=== PATIENT | male | born 1960 | race Caucasian/White ===

== ENCOUNTER → 2018-03-20 | Outpatient (CLI) | payer OTHER ==
[~2018-03-20] MED LIST: ALBUTEROL SULF8.5 GM; ALBUTEROL SULFAT2 MG PO; FLONASE16 GM NS; LASIX40 MG PO; LEVAQUIN500 MG PO; LIPITOR20 MG NG; LSNP2.5 PO; PHN100C PO; PREDNISONE10 MG PO; SYMBICORT 16010.2 GM; THP300TCR PO; VIAGRA100 MG PO; [UNRECOGNIZED DRUG - CODE] PO; [UNRECOGNIZED DRUG - OTHER]
--- NOTE | 2018-03-20 10:49 | Diagnostic Imaging Report ---
PROCEDURE: CT CHEST WITHOUT CONTRAST CT scan of the chest WITHOUT intravenous contrast, using standard protocol. TECHNIQUE: The chest was scanned utilizing a multidetector helical scanner from the apex to the level of the adrenal glands. No IV contrast was administered because of referring physician request. Coronal and sagittal multiplanar reformations were obtained. COMPARISON: The 10/19/2017. INDICATIONS: NODULE FINDINGS: Lines/tubes: None. Lungs and Airways: 5 mm irregularly marginated nodule in the superior segment of the left upper lobe has minimally increased in size, now measuring 6 mm in diameter. Scattered patchy and linear foci of groundglass opacity in the lingula (series 3 image 56), right upper lobe, (series 3 image 35), and inferior lingula,( series 3 image 89) likely reflective of atelectasis or fibrotic changes.. Trachea, mainstem bronchi, and central lobar and segmental bronchi are patent. Pleura: The pleural spaces are clear. Heart and mediastinum: Hypoattenuating lesion in the left lobe of the thyroid gland is unchanged. No axillary, hilar or, or mediastinal lymphadenopathy. No pericardial effusion. No ectasia or aneurysmal dilatation of the thoracic aorta. Atherosclerotic calcification of the right main and left anterior descending coronary arteries. Soft tissues: Normal. Abdomen: Visualized portions of the liver, spleen, adrenals, and pancreas are unremarkable. Bones: No osseous destructive lesions. Multilevel degenerative disc changes of the lower cervical and thoracic spine. IMPRESSION: Questionable minimal interval increase in size of the irregularly marginated nodule in the superior segment of the left lower lobe, now measuring 6 mm in maximum diameter. An additional [address] scan of the chest is suggested, as the nodule remains of insufficient size for reliable percutaneous sampling or evaluation by PET-CT. 1.4 cm lesion in left lobe of the thyroid may be further evaluated by ultrasound if clinically warranted. Atherosclerotic vascular disease. Dictated by: Akin Fofana M.D. on 03/20/2018 at 10:51 Electronically approved by: Akin Fofana M.D. on 03/20/2018 at 10:51
== END ==
LOC: CT 09:24
PROVIDERS: ATTEND Internal Medicine Critical Care Medicine
DX: R91.8 Other nonspecific abnormal finding of lung field (principal); I70.90 Unspecified atherosclerosis
CPT/HCPCS: 71250

== ENCOUNTER → 2018-05-30 | Outpatient (CLI) | payer OTHER ==
--- NOTE | 2018-05-30 15:26 | Diagnostic Imaging Report ---
PROCEDURE: CT CHEST WITHOUT CONTRAST CT scan of the chest WITHOUT intravenous contrast, using standard nodule protocol. TECHNIQUE: The chest was scanned utilizing a multidetector helical scanner from the apex to the level of the adrenal glands. No IV contrast was administered . Coronal and sagittal multiplanar reformations were obtained. COMPARISON: None. INDICATIONS: NODULE FINDINGS: Lines/tubes: None. Lungs and Airways: Stable size and appearance of mildly spiculated noncalcified nodule in the superior segment of the left lower lobe, which measures approximately 0.6 x 0.6 cm (series 3, image 47). Marked interval improvement in previously visualized patchy groundglass opacities in the lingula (series 3, image 64). Interval resolution of right upper lobe groundglass opacities. No new nodules, masses, or consolidation. Airways are clear, without endobronchial lesions. Pleura: No effusion, or pneumothorax. Heart and mediastinum: Stable hypodense lesion in the left thyroid lobe, measuring approximately 1.4 cm (series 2 image 16). Heart size is normal. No pericardial effusion. Mild atherosclerotic calcification of the coronary arteries and thoracic aortic arch. Aorta is non-aneurysmal. Main pulmonary artery is normal in caliber. Lymph nodes: No mediastinal, hilar, or axillary adenopathy. Abdomen: Limited non-enhanced views of the upper abdomen show no abnormality within the visualized spleen, pancreas. Diffuse hepatic steatosis. Visualized portions of the adrenal glands are normal. Bones: No acute bony abnormalities. No aggressive lytic lesions. Soft tissues are grossly unremarkable. IMPRESSION: 1. Stable size and appearance of mildly spiculated nodule in the superior segment of the left lower lobe. Recommend followup chest CT in 3-6 months to document stability. Nodule remains likely of insufficient size for tissue biopsy or PET CT evaluation. Yusef Lopez M.D. Dictated by: Yusef Lopez M.D. on 05/30/2018 at 15:31 Electronically approved by: Yusef Lopez M.D. on 05/30/2018 at 15:31
== END ==
LOC: CT 14:09
PROVIDERS: ATTEND Internal Medicine Critical Care Medicine
DX: R91.8 Other nonspecific abnormal finding of lung field (principal)
CPT/HCPCS: 71250

== ENCOUNTER 2018-12-31 12:59 | Inpatient (IN) | payer OTHER ==
[~2018-12-31] VITALS: Ht 182.9 cm; Wt 108.5 kg
--- OUTSIDE RECORDS SUMMARY | 2018-12-31 13:02 | XMS REPORT ---
[facility] Address Unknown Phone Unavailable Care Team Providers Care Parts Counter Associate Name Role Phone EVERT GUERRERO Unavailable Unavailable DRE, VU Unavailable Unavailable Problems This patient has no known problems. Allergies, Adverse Reactions, Alerts This patient has no known allergies or adverse reactions. Medications This patient has no known medications. Results Test Description Test Time Test Comments Text Results Atomic Results Result Comments CT CHEST WO 2018-05-30 15:31:00 [place] [address] Patient Name: JOAO ALVAREZ MR #: [id number] : 1960 Age/Sex: 57/M Req #: [id number] Adm Physician: Ordered by: EVERT GUERRERO MD Report #: [id number] Location: CT Room/Bed: Procedure: [id number] CT/CT CHEST WO Exam Date: 05/30/18 Exam Time: 1416 REPORT STATUS: Signed PROCEDURE: CT CHEST WITHOUT CONTRAST CT scan of the chest WITHOUT intravenous contrast, using standard nodule protocol. TECHNIQUE: The chest was scanned utilizing a multidetector helical scanner from the apex to the level of the adrenal glands. No IV contrast was administered . Coronal and sagittal multiplanar reformations were obtained. COMPARISON: None. INDICATIONS: NODULE FINDINGS: Lines/tubes: None. Lungs and Airways: Stable size and appearance of mildly spiculated noncalcified nodule in the superior segment of the left lower lobe, which measures approximately 0.6 x 0.6 cm (series 3, image 47). Marked interval improvement in previously visualized patchy groundglass opacities in the lingula (series 3, image 64). Interval resolution of right upper lobe groundglass opacities. No new nodules, masses, or consolidation. Airways are clear, without endobronchial lesions. Pleura: No effusion, or pneumothorax. Heart and mediastinum: Stable hypodense lesion in the left thyroid lobe, measuring approximately 1.4 cm (series 2 image 16). Heart size is normal. No pericardial effusion. Mild atherosclerotic calcification of the coronary arteries and thoracic aortic arch. Aorta is non-aneurysmal. Main pulmonary artery is normal in caliber. Lymph nodes: No mediastinal, hilar, or axillary adenopathy. Abdomen: Limited non-enhanced views of the upper abdomen show no abnormality within the visualized spleen, pancreas. Diffuse hepatic steatosis. Visualized portions of the adrenal glands are normal. Bones: No acute bony abnormalities. No aggressive lytic lesions. Soft tissues are grossly unremarkable. IMPRESSION: 1. Stable size and appearance of mildly spiculated nodule in the superior segment of the left lower lobe. Re commend followup chest CT in 3-6 months to document stability. Nodule remains likely of insufficient size for tissue biopsy or PET CT evaluation. Eladio Lopez M.D. Dictated by: Eladio Lopez M.D. on 05/30/2018 at 15:31 Electronically approved by: Eladio Lopez M.D. on 05/30/2018 at 15:31 Dictated By: ELADIO LOPEZ MD [id number] Transcribed By: SHARYN on 05/30/18 1531 COPY TO: EVERT GUERRERO MD CT CHEST WO [place] [address] Patient Name: JOAO ALVAREZ MR #: [id number] : 1960 Age/Sex: 57/M Req #: [id number] Adm Physician: Ordered by: EVERT GUERRERO MD Report #: [id number] Location: CT Room/Bed: Procedure: [id number] CT/CT CHEST WO Exam Date: 03/20/18 Exam Time: 0950 REPORT STATUS: Signed PROCEDURE: CT CHEST WITHOUT CONTRAST CT scan of the chest WITHOUT intravenous contrast, using standard protocol. TECHNIQUE: The chest was scanned utilizing a multidetector helical scanner from the apex to the level of the adrenal glands. No IV contrast was administered because of referring physician request. Coronal and sagittal multiplanar reformations were obtained. COMPARISON: The 10/19/2017. INDICATIONS: NODULE FINDINGS: Lines/tubes: None. Lungs and Airways: 5 mm irregularly marginated nodule in the superior segment of the left upper lobe has minimally increased in size, now measuring 6 mm in diameter. Scattered patchy and linear foci of groundglass opacity in the lingula (series 3 image 56), right upper lobe, (series 3 image 35), and inferior lingula,( series 3 image 89) likely reflective of atelectasis or fibrotic changes.. Trachea, mainstem bronchi, and central lobar and segmental bronchi are patent. Pleura: The pleural spaces are clear. Heart and mediastinum: Hypoattenuating lesion in the left lobe of the thyroid gland is unchanged. No axillary, hilar or, or mediastinal lymphadenopathy. No pericardial effusion. No ectasia or aneurysmal dilatation of the thoracic aorta. Atherosclerotic calcification of the right main and left anterior descending coronary arteries. Soft tissues: Normal. Abdomen: Visualized portions of the liver, spleen, adrenals, and pancreas are unremarkable. Bones: No osseous destructive lesions. Multilevel degenerative disc changes of the lower cervical and thoracic spine. IMPRESSION: Questionable minimal interval increase in size of the irregularly marginated nodule in the superior segment of the left lower lobe, now measuring 6 mm in maximum diameter. An additional [address] scan of the chest is suggested, as the nodule remains of insufficient size for reliable percutaneous sampling or evaluation by PET-CT. 1.4 cm lesion in left lobe of the thyroid may be further evaluated by ultrasound if clinically warranted. Atherosclerotic vascular disease. Dictated by: Lety Dorado M.D. on 03/20/2018 at 10:51 Electronically approved by: Lety Dorado M.D. on 03/20/2018 at 10:51 Dictated By: LETY DORADO MD 105 Transcribed By: SHARYN on 03/20/18 1051 COPY TO: EVERT GUERRERO MD CT CHEST WO [place] [address] Patient Name: JOAO ALVAREZ MR #: [id number] : 1960 Age/Sex: 56/M Req #: [id number] Adm Physician: Ordered by: EVERT GUERRERO MD Report #: [id number] Location: CT Room/Bed: Procedure: [id number] CT/CT CHEST WO Exam Date: 10/19/17 Exam Time: 1350 REPORT STATUS: Signed PROCEDURE: CT CHEST WITHOUT CONTRAST CT scan of the chest WITHOUT intravenous contrast, using standard protocol. TECHNIQUE: The chest was scanned utilizing a multidetector helical scanner from the apex to the level of the adrenal glands. No IV contrast was administered per physician's request. Coronal and sagittal multiplanar reformations were obtained. COMPARISON: [facility], CT, CT CHEST W, 12/09/2014, 11:26. INDICATIONS: SHORTNESS OF BREATH. ASTHMA FINDINGS: Lines/tubes: None. Lungs and Airways: Linear opacities in the lingula (series 3, image 93), right lower lobe (sagittal image 52) and left lower lobe (sagittal image 140), likely represent subsegmental atelectasis or scarring. No consolidation, other opacities or masses. 5 mm somewhat spiculated nodular les ion in the superior segment of the left lower lobe, with linear opacity extending to the pleural surface (series 3, image 43). No other pulmonary nodules. Airways are clear, without endobronchial lesions. Pleura: No effusion, or pneumothorax. Heart and mediastinum: Questionable 1.4 cm hypodense lesion in the left thyroid lobe (series 2 image 13). Heart size is normal. No pericardial effusion. Atherosclerotic calcification of the coronary arteries and thoracic aortic arch. Aorta is non-aneurysmal. Main pulmonary artery is normal in caliber, measuring approximately 2.8 cm. Lymph nodes: No mediastinal, hilar, or axillary adenopathy. Abdomen: Limited views of the upper abdomen show no abnormality within the visualized liver, spleen, pancreas, or kidneys. The adrenal glands are normal. Bones: No acute bony abnormalities. Degenerative disc changes in the thoracic spine. No lytic lesions. IMPRESSION: 1. subsegmental atelectasis or scarring in the lingula, right lower lobe and left lower lobe. No consolidation or effusion. 2. 5 mm somewhat spiculated nodular lesion in the superior segment of the left lower lobe, which may represent residual scarring given prior CT showing marked atelectasis and linear opacities at this location, however, a suspicious nodule is also considered. Recommend noncontrast chest CT in 3 months to document stability. Eladio Lopez M.D. Dictated by: Eladio Lopez M.D. on 10/19/2017 at 17:24 Electronically approved by: Eladio Lopez M.D. on 12/20/2016 at 17:24 Dictated By: ELADIO LOPEZ MD 23 Transcribed By: SHARYN on 10/19/171723 COPY TO: EVERT GUERRERO MD CHEST 2 VIEWS [place] [address] Patient Name: JOAO ALVAREZ MR #: [id number] : 1960 Age/Sex: 56/M Req #: [id number] Adm Physician: Ordered by: ERICA ERICKSON MD Report #: [id number] Location: [facility] Room/Bed: Procedure: [id number] DX/CHEST 2 VIEWS Exam Date: Exam Time: REPORT STATUS: Signed PROCEDURE: Frontal and lateral views of the chest. COMPARISON: Chest 2 views 11/21/2014. INDICATIONS: BRONCHITIS. SHORTNESS OF BREATH. COUGH FINDINGS: Lines/tubes: None. Lungs: The lungs are well inflated and clear. There is no evidence of pneumonia or pulmonary edema. Pleura: There is no pleural effusion or pneumothorax. Heart and mediastinum: The heart and the mediastinum are normal. Bones: No acute bony abnormality. Degenerative changes of the thoracic spine. IMPRESSION: No acute radiographic abnormality. Dictated by: Crissy Lyons M.D. on 09/09/2017 at 13:29 Electronically approved by: Crissy Lyons M.D. on 09/09/2017 at 13:29 Dictated By: CRISSY LYONS MD 1329 Transcribed By: SHARYN on 09/09/17 1329 COPY TO: ERICA ERICKSON MD
--- NOTE | 2018-12-31 13:29 | NUR ---
ULTRASOUND AT BEDSIDE FOR VENOUS DOPPLER.
[2018-12-31 13:56] LABS: BASOPHILS # (AUTO) 0.1 (0.0-0.1); BASOPHILS % 0.8 % (0.0-1.0); EOSINOPHILS # (AUTO) 0.3 (0.0-0.4); EOSINOPHILS % 2.3 % (0.0-6.0); HEMATOCRIT 44.4 % (38.2-49.6); HEMOGLOBIN 14.3 g/dL (14.0-18.0); LYMPHOCYTES # (AUTO) 2.9 (1.0-3.2); LYMPHOCYTES % 25.7 % (18.0-39.1); MEAN CORPUSCULAR HEMOGLOBIN 29.9 pg (28-32); MEAN CORPUSCULAR HGB CONC 32.2 g/dL (31-35); MEAN CORPUSCULAR VOLUME 92.9 fL (81-99); MONOCYTES # (AUTO) 1.2 (0.2-0.8); MONOCYTES % 10.4 % (4.4-11.3); NEUTROPHILS # (AUTO) 6.7 (2.1-6.9); NEUTROPHILS % 60.5 % (38.7-80.0); PLATELET COUNT 375 x10e3/uL (140-360); RED BLOOD COUNT 4.78 x10e6/uL (4.3-5.7); RED CELL DISTRIBUTION WIDTH 14.4 % (11.7-14.4)
[2018-12-31 14:05] LABS: INR 0.81
[2018-12-31 14:06] LABS: PARTIAL THROMBOPLASTIN TIME 29.2 seconds (23.8-35.5)
[2018-12-31 14:10] LABS: ANION GAP 12.6 mmol/L (8-16); BLOOD UREA NITROGEN 11 mg/dL (7-26); BUN/CREATININE RATIO 10 (6-25); CALCIUM 9.5 mg/dL (8.4-10.2); CARBON DIOXIDE 27 mmol/L (22-29); CHLORIDE 101 mmol/L (98-107); CREATININE, SERUM 1.11 mg/dL (0.72-1.25); EST GLOMERULAR FILTRATION RATE > 60 ML/MIN (60-); GLUCOSE 129 mg/dL (74-118); POTASSIUM 3.6 mmol/L (3.5-5.1); SODIUM 137 mmol/L (136-145)
[2018-12-31] MEDS: VANCOMYCIN 1GM/NS 250 ML 250 ML IV SCH ×2 (14:30→21:14)
--- NOTE | 2018-12-31 16:41 | NUR ---
received pt via stretcher accompanied by . c/o pain to RLE 07/17. Resp even and unlabored. Oriented to room and use of call light. call light placed within reach and instructed to call for assistance. will administer PRN pain med.
[2018-12-31] MEDS: MORPHINE SULFATE INJ 4 MG/ML INJ 1ML IV PRN ×2 (17:00→21:14)
[2018-12-31] MEDS: SODIUM CHLORIDE 0.9% 1000ML 1,000 ML IV SCH (17:05)
[2018-12-31] MEDS ORDERED: SODIUM CHLORIDE 0.9% 50ML 50 ML ONE (17:37)
[2018-12-31] MEDS ORDERED: IOPAMIDOL 370 MG/ML 200 ML INFUS..BTL INJ ONE (17:38)
[2018-12-31] MEDS: PIPER-TAZ 3.375 GM 50 ML IV SCH (17:42)
[2018-12-31 18:12] VITALS: BP 120/61
[2018-12-31 18:38] VITALS: BP 120/61
[2018-12-31 18:49] VITALS: BP 120/61
--- NOTE | 2018-12-31 18:55 | Diagnostic Imaging Report ---
EXAM: CT right Right Fibula/Tibia with contrast. INDICATION: Calf swelling, query abscess. COMPARISON: None. TECHNIQUE: Multidetector CT images were obtained from the level of the distal femur to the hindfoot. Dose modulation, iterative reconstruction, and/or weight based adjustment of the mA/kV was utilized to reduce the radiation dose to as low as reasonably achievable. IV CONTRAST: 100 cc of Isovue 370. ORAL CONTRAST: Water RADIATION DOSE: Total DLP: 256.8 mGy*cm Estimated effective dose: (DLP x 0.015 x size factor) mSv COMPLICATIONS: None FINDINGS: There is partially seen findings status post bilateral total knee arthroplasty on oil scout image. No evidence of bony destructive changes, acute fracture or malalignment. Well-corticated bony fragment adjacent to the lateral malleolus likely reflect sequela of prior trauma. There is diffuse subcutaneous edema throughout the right lower extremity. There is a hypodense collection measuring up to 4.0 x 2.7 x 9.5 cm within the deep medial calf adjacent to the medial aspect of the gastrocnemius. No surrounding rim enhancement. IMPRESSION: Collection measuring up to 9.5 cm in the medial calf, suspicious for abscess. Surrounding soft tissue edema likely reflecting silhouette is. No evidence of underlying bony involvement. Signed by: Dr. Norma Martínez MD on 12/31/2018 6:52 PM
[2018-12-31 20:31] VITALS: BP 116/56
[2018-12-31] MEDS ORDERED: PNEUMOCOCCAL VACCINE POLYVALENT 23 MCG/0.5 ML VIAL IM NR (21:00)
[2019-01-01] VITALS (7 sets, daily range): BP systolic 110–134; BP diastolic 53–78
[2019-01-01] MEDS: PIPER-TAZ 3.375 GM 50 ML IV SCH ×5 (00:23→23:56)
[2019-01-01] MEDS: MORPHINE SULFATE INJ 4 MG/ML INJ 1ML IV PRN ×5 (04:52→21:14)
[2019-01-01 05:12] LABS: BASOPHILS # (AUTO) 0.1 (0.0-0.1); BASOPHILS % 0.9 % (0.0-1.0); EOSINOPHILS # (AUTO) 0.3 (0.0-0.4); EOSINOPHILS % 3.2 % (0.0-6.0); HEMATOCRIT 39.7 % (38.2-49.6); HEMOGLOBIN 12.7 g/dL (14.0-18.0); LYMPHOCYTES # (AUTO) 2.7 (1.0-3.2); LYMPHOCYTES % 31.4 % (18.0-39.1); MEAN CORPUSCULAR HEMOGLOBIN 30.2 pg (28-32); MEAN CORPUSCULAR VOLUME 94.5 fL (81-99); NEUTROPHILS # (AUTO) 4.6 (2.1-6.9); NEUTROPHILS % 53.2 % (38.7-80.0); PLATELET COUNT 295 x10e3/uL (140-360); RED CELL DISTRIBUTION WIDTH 14.3 % (11.7-14.4)
[2019-01-01 05:35] LABS: ANION GAP 8.4 mmol/L (8-16); BLOOD UREA NITROGEN 9 mg/dL (7-26); BUN/CREATININE RATIO 10 (6-25); CALCIUM 8.6 mg/dL (8.4-10.2); CARBON DIOXIDE 27 mmol/L (22-29); CHLORIDE 103 mmol/L (98-107); CREATININE, SERUM 0.92 mg/dL (0.72-1.25); EST GLOMERULAR FILTRATION RATE > 60 ML/MIN (60-); GLUCOSE 118 mg/dL (74-118); POTASSIUM 3.4 mmol/L (3.5-5.1); SODIUM 135 mmol/L (136-145)
[2019-01-01] MEDS: SODIUM CHLORIDE 0.9% 1000ML 1,000 ML IV SCH ×4 (06:22→22:22)
--- NOTE | 2019-01-01 07:03 | NUR ---
Received patient mid fowlers position, side rails upx2, call light within reach. Resting with eyes closed. Arousable to verbal stimuli. Respirations even and unlabored. No facial grimacing noted. Will continue to monitor.
[2019-01-01] MEDS: VANCOMYCIN 1GM/NS 250 ML 250 ML IV SCH ×2 (09:40→21:14)
--- NOTE | 2019-01-01 10:14 | NUR ---
CASE MANAGEMENT ASSESSMENT Electro Mechanical Engineer to bedside to discuss plan of care with patient/family. CM/SW role and care transitions discussed. Anticipated discharge plan discussed along with duration of care. CM/SW discussed patients right to make decisions in care. CM/SW work hours given. Patient lives: with Kapil Admit/Transfer: thru ED Hospital/ER visits since last admit: Last admitted was March 2018, no ED visits since then POA/Emergency contact: Kapil Baez [phone] Current/Previous Home Health: none PCP/Follow-up Care: Dr. Spangler - advised pt to follow up with his MD within 7 days of discharge for follow up care. Current/Previous DME: nebulizer Medications (referring to index hospitalization or the first time you were in the hospital) a. Were changes made in your medications when you were in the hospital on [date of index hospitalization]? n/a b. Did you understand the changes? n/a c. Were you able to obtain your new medications right away? n/a d. Were you able to take your medications like the doctor wanted you to? n/a e. Did the hospital give you an accurate, easy to understand list of medications when you left? n/a Scale of 1-10 how comfortable does patient feel with disease management in outpatient settin Other Services: none Employment Status: employed with [employer] Areas of Concerns: cellulitis possible abscess Referral Needs: none at this time Education Needs: medical management IMM/VICTOR given and signed (if applicable): n/a Goal for discharge: home and back to work CM/SW left business card at the bedside with contact information. Name and number was also written on the patients whiteboard. Patient verbalized understanding of discussion. CM will follow-up with ongoing discharge and transition of care needs.
[2019-01-01] MEDS ORDERED: TEMAZEPAM15 MG PO (10:42)
[2019-01-01] MEDS ORDERED: CEPHALEXIN500 MG PO (10:42)
[2019-01-01] MEDS ORDERED: LOSARTAN POTAS100 MG PO (10:42)
[2019-01-01] MEDS ORDERED: ALBUTEROL0.63 MG/3 INH (10:42)
[2019-01-01] MEDS ORDERED: LORATADINE-PSE1 EACH PO (10:44)
[2019-01-01] MEDS ORDERED: PREDNISONE 10 MG TAB PO SCH (11:00)
[2019-01-01] MEDS ORDERED: ALBUTEROL SULF 0.083% NEB SOLN 3 ML NEB INH PRN (11:00)
[2019-01-01] MEDS: LORATADINE/PSEUDOEPHEDRINE 24 HR SR TAB PO SCH (11:24)
[2019-01-01] MEDS ORDERED: POTASSIUM CHLORIDE 20 MEQ TAB CR PO ONE (11:30)
[2019-01-01] MEDS ORDERED: PREDNISONE 10 MG TAB PO PRN (11:30)
[2019-01-01] MEDS: FUROSEMIDE 40 MG TAB PO SCH (12:49)
[2019-01-01] MEDS: LOSARTAN POTASSIUM 100 MG TAB PO SCH (12:49)
--- NOTE | 2019-01-01 14:12 | NUR ---
History and Physical cc: right leg pain/redness HPI: 58yoM, PCP ??, developed right leg pain/redness/swelling. No f/c/s. PMH: HNT, asthma, obesity, systolich chf, CAD, resp arrest, allergic rhinitis, former smoker PSHx: B/l knee replacement, Allergies; see emr [facility]; ; hx cgis Meds; see MAR ROS: no f/c/s/N/v/D/SCOTT/vision changes/back pain/cp/sob v/s revd PE: tired appeairng anicteric ns1s2 mod bs soft nt nd right foreleg erythema/warmth/tenderness/edema skin dry flat affect a&ox3; whalen labs/med; revd A/P: 58yoM Right foreleg cellulitis Right calf hematoma Hypokalemia obesity BMI 32.4 HTn Right leg edema Hx asthma PLAN iv abx f/u cx U/S shows hematoma hba1c/lipids pain control Prop: maximiliano Billy Pena MD, PhD.
[2019-01-01 14:29] LABS: CHOL/HDL RATIO 2.9 (3.9-4.7)
[2019-01-01] MEDS ORDERED: PNEUMOCOCCAL VACCINE POLYVALENT 23 MCG/0.5 ML VIAL IM ONE (15:30)
[2019-01-01] MEDS: ENOXAPARIN SOD INJ 40 MG/0.4 ML SYR SC SCH (16:39)
[2019-01-01] MEDS: FAMOTIDINE 20 MG TAB PO SCH (16:39)
[2019-01-01] MEDS ORDERED: GABAPENTIN300 MG PO (18:27)
--- NOTE | 2019-01-01 19:05 | NUR ---
Report given to oncoming nurse of patient's status. NO s/s of acute distress noted.
[2019-01-01] MEDS: BUDESONIDE/FORMOTEROL 160/4.5MCG INHALER INH SCH (19:55)
[2019-01-01] MEDS: GABAPENTIN 300 MG CAP PO SCH (21:14)
[2019-01-01] MEDS: TEMAZEPAM 15 MG CAP PO SCH (21:58)
[2019-01-02] VITALS (7 sets, daily range): BP systolic 107–142; BP diastolic 51–64
[2019-01-02] MEDS: MORPHINE SULFATE INJ 4 MG/ML INJ 1ML IV PRN ×5 (04:01→21:05)
[2019-01-02 05:34] LABS: BASOPHILS # (AUTO) 0.1 (0.0-0.1); BASOPHILS % 0.9 % (0.0-1.0); EOSINOPHILS # (AUTO) 0.3 (0.0-0.4); EOSINOPHILS % 3.3 % (0.0-6.0); HEMATOCRIT 39.2 % (38.2-49.6); HEMOGLOBIN 12.3 g/dL (14.0-18.0); LYMPHOCYTES # (AUTO) 2.6 (1.0-3.2); LYMPHOCYTES % 29.6 % (18.0-39.1); MEAN CORPUSCULAR HEMOGLOBIN 29.6 pg (28-32); MEAN CORPUSCULAR HGB CONC 31.4 g/dL (31-35); MEAN CORPUSCULAR VOLUME 94.5 fL (81-99); NEUTROPHILS # (AUTO) 4.8 (2.1-6.9); NEUTROPHILS % 54.7 % (38.7-80.0); PLATELET COUNT 310 x10e3/uL (140-360); RED BLOOD COUNT 4.15 x10e6/uL (4.3-5.7)
[2019-01-02] MEDS: PIPER-TAZ 3.375 GM 50 ML IV SCH ×4 (05:34→23:46)
[2019-01-02 05:56] LABS: ANION GAP 9.3 mmol/L (8-16); BLOOD UREA NITROGEN 8 mg/dL (7-26); BUN/CREATININE RATIO 9 (6-25); CALCIUM 8.7 mg/dL (8.4-10.2); CARBON DIOXIDE 26 mmol/L (22-29); CHLORIDE 106 mmol/L (98-107); CREATININE, SERUM 0.87 mg/dL (0.72-1.25); EST GLOMERULAR FILTRATION RATE > 60 ML/MIN (60-); GLUCOSE 94 mg/dL (74-118); POTASSIUM 4.3 mmol/L (3.5-5.1); SODIUM 137 mmol/L (136-145)
[2019-01-02] MEDS: SODIUM CHLORIDE 0.9% 1000ML 1,000 ML IV SCH ×3 (06:22→21:30)
--- NOTE | 2019-01-02 06:49 | NUR ---
IM- progress note O/N ;no events ROS: no f/c/s/N/v/D/SCOTT/vision changes/back pain/cp/sob v/s revd PE: tired appeairng anicteric ns1s2 mod bs soft nt nd right foreleg erythema/warmth/tenderness/edema skin dry flat affect a&ox3; whalen labs/med; revd A/P: 58yoM Right foreleg cellulitis Right calf hematoma Hypokalemia obesity BMI 32.4 HTn Right leg edema Hx asthma PLAN iv abx f/u cx U/S shows hematoma hba1c/lipids pain control Prop: dispo 01/02 Hba1c/LDl 5.. ?abscess on CT? Sx consult; cont IV abx vanco/zosyn; leukoyctosis resolved. Check sed rate.Clinically improving. Billy Pena MD, PhD.
[2019-01-02] MEDS: BUDESONIDE/FORMOTEROL 160/4.5MCG INHALER INH SCH ×2 (07:59→19:45)
[2019-01-02] MEDS: ALBUTEROL SULFATE HFA 8GM INHALATION AEROSOL INH PRN ×3 (08:00→14:41)
[2019-01-02] MEDS: VANCOMYCIN 1GM/NS 250 ML 250 ML IV SCH ×2 (08:25→21:30)
[2019-01-02] MEDS: FAMOTIDINE 20 MG TAB PO SCH ×2 (08:25→17:15)
[2019-01-02] MEDS: LORATADINE/PSEUDOEPHEDRINE 24 HR SR TAB PO SCH (08:26)
[2019-01-02] MEDS: LOSARTAN POTASSIUM 100 MG TAB PO SCH (08:26)
[2019-01-02] MEDS: GABAPENTIN 300 MG CAP PO SCH ×3 (08:26→20:20)
[2019-01-02] MEDS: FUROSEMIDE 40 MG TAB PO SCH (08:26)
[2019-01-02] MEDS ORDERED: LIDOCAINE HCL 1% LOCAL INJ 20 ML VIAL ONE (09:30)
--- NOTE | 2019-01-02 16:31 | Consultation ---
DATE OF CONSULTATION: 01/02/2019 CHIEF COMPLAINT: Right calf pain. HISTORY OF PRESENT ILLNESS: The patient is a 58-year-old male with 5-day history of right calf pain with no history of injury to area. He noted increased swelling and tenderness in the right calf. Denies fever or chills. PAST MEDICAL HISTORY: Significant for asthma, seizure disorder, and hypertension. PAST SURGICAL HISTORY: Positive for bilateral knee replacement. ALLERGIES: HE HAS NO DRUG ALLERGIES. SOCIAL HISTORY: He denies smoking or alcohol abuse. REVIEW OF SYSTEMS: No shortness of breath or chest pain. PHYSICAL EXAMINATION: VITAL SIGNS: Stable. He is afebrile. He is awake, alert, in moderate discomfort. HEENT: Sclerae anicteric. NECK: Supple. LUNGS: Clear. HEART: Regular rate and rhythm. ABDOMEN: Soft and nontender. EXTREMITIES: Right lower extremity revealed edema from the ankle to the knee with tenderness to palpation in the right medical calf proximally. Pedal pulses are not palpable on the right due to edema, but foot is warm. LABORATORY DATA: The patient's white cell count 8.7, hemoglobin of 12, and platelet count of 310. Creatinine of 0.8. IMAGING: CT of the lower extremity revealed 9.5 cm medial calf collection, suspicious for abscess. ASSESSMENT: Right medial calf collection, possible abscess. PLAN: Aspiration under ultrasound by Interventional Radiology to determine the etiology. We will follow the patient. MD WAQAS Green/MARYL /[id number]
--- NOTE | 2019-01-02 17:02 | Diagnostic Imaging Report ---
Date and Time: 01/02/2019 Procedure: Ultrasound-guided aspiration of right calf fluid collection straightening press operator helper: Dr. Fofana Pre-operative diagnosis: Right calf fluid collection Post-operative diagnosis: Right calf fluid collection Conscious Sedation: None The patient's heart rate and pulse oximetry were continuously monitored by the interventional radiology nurse. Blood pressure was monitored at 5 minute intervals. Additional Medications: Lidocaine 1% for local anesthesia Estimated blood loss: Minimal Blood products administered: None Specimens: 30 cc serosanguineous fluid Implants: None Condition at completion: Stable Disposition: Returned to floor DISCUSSION: Informed consent was obtained and documented in the medical record. Preliminary sonographic evaluation of the right lower leg confirmed a lentiform complex fluid collection in the superficial musculature of the right medial calf. A suitable percutaneous approach was identified and the overlying skin was prepped and draped in the standard sterile fashion. 1% lidocaine was infiltrated into the skin and subcutaneous tissues for local anesthesia. Then under continuous sonographic guidance a 5 Bur[place] Yueh needle catheter was advanced into the collection. The catheter was advanced off the needle. Subsequently, 30 cc of thick, serosanguineous fluid were aspirated. The catheter was then removed. Post procedure sonographic evaluation showed complete collapse of the fluid cavity. A sterile dressing was applied. The patient tolerated the procedure well without immediate complication. FINDINGS: Lentiform complex fluid collection in the right calf. IMPRESSION: Successful ultrasound-guided aspiration of a right lower leg fluid collection as above. Specimen was submitted for microbiologic analysis as requested by the referring clinical team. Signed by: Dr. Akin Fofana M.D. on 01/02/2019 4:58 PM
[2019-01-02] MEDS: ENOXAPARIN SOD INJ 40 MG/0.4 ML SYR SC SCH (17:15)
--- NOTE | 2019-01-02 19:02 | NUR ---
Report given to oncoming nurse of patient's status. AAOX4 to time, person, place, situation. 2x2 dressing to RLE clean,dry, and intact.
--- NOTE | 2019-01-02 20:00 | NUR ---
pt received. pt assessed. no ss of distress noted. pt co pain to right lower ext. discussed pain mngt poc. verbalized understanding. will medicate per orders. right lower calf drsg cdi. will cont to follow poc. call monique within reach.
[2019-01-02] MEDS: TEMAZEPAM 15 MG CAP PO SCH (20:21)
--- NOTE | 2019-01-02 20:25 | NUR ---
lab director at bedside. no distress noted. call monique within reach.
--- NOTE | 2019-01-02 21:15 | NUR ---
spoke to lab regarding results. per written orders cont with vanc as ordered.
--- NOTE | 2019-01-03 | NUR ---
pt refused midnight vitals. no ss of distress noted. call monique within reach.
[2019-01-03 04:00] VITALS: BP 147/66
[2019-01-03] MEDS: MORPHINE SULFATE INJ 4 MG/ML INJ 1ML IV PRN ×5 (04:32→22:47)
[2019-01-03 04:55] LABS: BASOPHILS # (AUTO) 0.1 (0.0-0.1); EOSINOPHILS # (AUTO) 0.3 (0.0-0.4); EOSINOPHILS % 3.2 % (0.0-6.0); HEMATOCRIT 41.2 % (38.2-49.6); HEMOGLOBIN 12.9 g/dL (14.0-18.0); LYMPHOCYTES # (AUTO) 2.3 (1.0-3.2); LYMPHOCYTES % 28.8 % (18.0-39.1); MEAN CORPUSCULAR HEMOGLOBIN 30.2 pg (28-32); MEAN CORPUSCULAR HGB CONC 31.3 g/dL (31-35); MEAN CORPUSCULAR VOLUME 96.5 fL (81-99); MONOCYTES # (AUTO) 0.7 (0.2-0.8); MONOCYTES % 9.2 % (4.4-11.3); NEUTROPHILS # (AUTO) 4.6 (2.1-6.9); NEUTROPHILS % 57.6 % (38.7-80.0); PLATELET COUNT 273 x10e3/uL (140-360); RED BLOOD COUNT 4.27 x10e6/uL (4.3-5.7); RED CELL DISTRIBUTION WIDTH 13.7 % (11.7-14.4)
[2019-01-03 05:19] LABS: ANION GAP 10.2 mmol/L (8-16); BLOOD UREA NITROGEN 10 mg/dL (7-26); BUN/CREATININE RATIO 10 (6-25); CALCIUM 9.1 mg/dL (8.4-10.2); CARBON DIOXIDE 26 mmol/L (22-29); CHLORIDE 104 mmol/L (98-107); CREATININE, SERUM 0.99 mg/dL (0.72-1.25); EST GLOMERULAR FILTRATION RATE > 60 ML/MIN (60-); GLUCOSE 88 mg/dL (74-118); POTASSIUM 4.2 mmol/L (3.5-5.1); SODIUM 136 mmol/L (136-145)
[2019-01-03] MEDS: PIPER-TAZ 3.375 GM 50 ML IV SCH ×3 (05:26→17:12)
[2019-01-03] MEDS: SODIUM CHLORIDE 0.9% 1000ML 1,000 ML IV SCH ×3 (05:26→23:59)
--- NOTE | 2019-01-03 05:27 | NUR ---
pt resting. no ss of distress noted. call monique within reach.
--- NOTE | 2019-01-03 07:08 | NUR ---
IM- progress note O/N ;no events ROS: no f/c/s/N/v/D/SCOTT/vision changes/back pain/cp/sob v/s revd PE: tired appeairng anicteric ns1s2 mod bs soft nt nd right foreleg erythema/warmth/tenderness/edema skin dry flat affect a&ox3; whalen labs/med; revd A/P: 58yoM Right foreleg cellulitis Right calf hematoma Hypokalemia obesity BMI 32.4 HTn Right leg edema Hx asthma PLAN iv abx f/u cx U/S shows hematoma hba1c/lipids pain control Prop: dispo 01/02 Hba1c/LDl 5.5/52. ?abscess on CT? Sx consult; cont IV abx vanco/zosyn; leukoyctosis resolved. Check sed rate.Clinically improving. 01/03 s/p drainage of abscess; cont IV abx. Billy Pena MD, PhD.
--- NOTE | 2019-01-03 07:40 | NUR ---
Received patient awake in bed no signs of distress. Call light in reach, will continue to monitor.
[2019-01-03 08:01] VITALS: BP 130/62
[2019-01-03] MEDS: BUDESONIDE/FORMOTEROL 160/4.5MCG INHALER INH SCH (08:07)
--- NOTE | 2019-01-03 09:00 | NUR ---
Patient A/O X3 even respirations on RA. Bowel sounds active, skin intact, 2+ pitting edema in RLE. Patient is ambulatory and uses walker for assistance. Right FA 20 gauge IV with NS @125 mls/hr. Right lower extremity is red, swollen, and warm to touch. Aspiration done on right calf 01/02/19. Call light in reach, will continue to monitor.
[2019-01-03] MEDS: FUROSEMIDE 40 MG TAB PO SCH (09:41)
[2019-01-03] MEDS: LOSARTAN POTASSIUM 100 MG TAB PO SCH (09:41)
[2019-01-03] MEDS: LORATADINE/PSEUDOEPHEDRINE 24 HR SR TAB PO SCH (09:41)
[2019-01-03] MEDS: GABAPENTIN 300 MG CAP PO SCH ×3 (09:41→21:35)
[2019-01-03] MEDS: FAMOTIDINE 20 MG TAB PO SCH ×2 (09:41→17:12)
[2019-01-03] MEDS: VANCOMYCIN 1GM/NS 250 ML 250 ML IV SCH ×2 (09:46→22:45)
[2019-01-03] MEDS: ONDANSETRON HCL INJ 2MG/ML 2ML 2 MG/ML VIAL IV PRN (09:48)
[2019-01-03 10:54] VITALS: BP 130/62
[2019-01-03 12:00] VITALS: BP 112/55
[2019-01-03 16:00] VITALS: BP 124/56
[2019-01-03] MEDS: ENOXAPARIN SOD INJ 40 MG/0.4 ML SYR SC SCH (17:12)
[2019-01-03 21:34] VITALS: BP 124/76
[2019-01-03] MEDS: TEMAZEPAM 15 MG CAP PO SCH (21:35)
[2019-01-04 00:50] VITALS: BP_SYST 117
[2019-01-04] MEDS: PIPER-TAZ 3.375 GM 50 ML IV SCH ×4 (00:57→17:28)
[2019-01-04] MEDS: SODIUM CHLORIDE 0.9% 1000ML 1,000 ML IV SCH ×3 (02:01→17:56)
[2019-01-04] MEDS: MORPHINE SULFATE INJ 4 MG/ML INJ 1ML IV PRN ×4 (05:16→20:59)
[2019-01-04 06:20] VITALS: BP 114/62
--- NOTE | 2019-01-04 06:43 | NUR ---
IM- progress note O/N ;no events ROS: no f/c/s/N/v/D/SCOTT/vision changes/back pain/cp/sob v/s revd PE: tired appeairng anicteric ns1s2 mod bs soft nt nd right foreleg erythema/warmth/tenderness/edema skin dry flat affect a&ox3; whalen labs/med; revd A/P: 58yoM Right foreleg cellulitis Right calf hematoma Hypokalemia obesity BMI 32.4 HTn Right leg edema Hx asthma PLAN iv abx f/u cx U/S shows hematoma hba1c/lipids pain control Prop: dispo 01/02 Hba1c/LDl 5.5/52. ?abscess on CT? Sx consult; cont IV abx vanco/zosyn; leukoyctosis resolved. Check sed rate.Clinically improving. 01/03 s/p drainage of abscess; cont IV abx. 01/04 cont abx; Billy Pena MD, PhD.
--- NOTE | 2019-01-04 07:15 | NUR ---
pt awake resp even and unlabored at this time no distress noted , able to make needs known, call light in reach
[2019-01-04] MEDS: BUDESONIDE/FORMOTEROL 160/4.5MCG INHALER INH SCH ×2 (07:43→19:57)
[2019-01-04 08:00] VITALS: BP 127/70
[2019-01-04] MEDS: FUROSEMIDE 40 MG TAB PO SCH (08:10)
[2019-01-04] MEDS: LOSARTAN POTASSIUM 100 MG TAB PO SCH (08:10)
[2019-01-04] MEDS: FAMOTIDINE 20 MG TAB PO SCH ×2 (08:10→17:28)
[2019-01-04] MEDS: GABAPENTIN 300 MG CAP PO SCH ×3 (08:10→20:54)
[2019-01-04] MEDS: LORATADINE/PSEUDOEPHEDRINE 24 HR SR TAB PO SCH (08:10)
[2019-01-04] MEDS: VANCOMYCIN 1GM/NS 250 ML 250 ML IV SCH ×2 (10:09→20:53)
[2019-01-04] MEDS ORDERED: ACETAMINOPHEN/CODEINE 300MG - 30MG TAB PO PRN (10:15)
[2019-01-04] MEDS: ONDANSETRON HCL INJ 2MG/ML 2ML 2 MG/ML VIAL IV PRN ×3 (10:48→20:59)
[2019-01-04 12:00] VITALS: BP 120/56
[2019-01-04 16:00] VITALS: BP 104/48
[2019-01-04] MEDS: ENOXAPARIN SOD INJ 40 MG/0.4 ML SYR SC SCH (17:28)
--- NOTE | 2019-01-04 19:26 | NUR ---
Received change of shift report from AM nurse. Report completed.
--- NOTE | 2019-01-04 19:30 | NUR ---
report given to oncoming nurse for continued care.
[2019-01-04 20:14] VITALS: BP 120/59
[2019-01-04] MEDS: TEMAZEPAM 15 MG CAP PO SCH (20:54)
[2019-01-05] VITALS (8 sets, daily range): BP systolic 105–111; BP diastolic 54–66
--- NOTE | 2019-01-05 | NUR ---
Patient AAOx3. Ambulates to bathroom with no asst. Swelling to right leg. +2 edema.
[2019-01-05] MEDS: ONDANSETRON HCL INJ 2MG/ML 2ML 2 MG/ML VIAL IV PRN ×4 (02:05→18:51)
[2019-01-05] MEDS: MORPHINE SULFATE INJ 4 MG/ML INJ 1ML IV PRN ×5 (02:05→23:25)
--- NOTE | 2019-01-05 05:03 | NUR ---
Patient resting quitly with no c/o at this time.
--- NOTE | 2019-01-05 05:24 | NUR ---
IM- progress note O/N ;no events ROS: no f/c/s/N/v/D/SCOTT/vision changes/back pain/cp/sob v/s revd PE: tired appeairng anicteric ns1s2 mod bs soft nt nd right foreleg erythema/warmth/tenderness/edema skin dry flat affect a&ox3; whalen labs/med; revd A/P: 58yoM Right foreleg cellulitis Right calf hematoma Hypokalemia obesity BMI 32.4 HTn Right leg edema Hx asthma PLAN iv abx f/u cx U/S shows hematoma hba1c/lipids pain control Prop: dispo 01/02 Hba1c/LDl 5.5. ?abscess on CT? Sx consult; cont IV abx vanco/zosyn; leukoyctosis resolved. Check sed rate.Clinically improving. 01/03 s/p drainage of abscess; cont IV abx. 01/04 cont abx; 01/05 check MRI for structural injury of whole leg; cont IV abx. Billy Pena MD, PhD.
[2019-01-05] MEDS: PIPER-TAZ 3.375 GM 50 ML IV SCH ×4 (06:00→18:09)
[2019-01-05] MEDS: SODIUM CHLORIDE 0.9% 1000ML 1,000 ML IV SCH ×3 (06:22→22:22)
[2019-01-05] MEDS: BUDESONIDE/FORMOTEROL 160/4.5MCG INHALER INH SCH ×2 (07:48→19:55)
[2019-01-05] MEDS: LOSARTAN POTASSIUM 100 MG TAB PO SCH (09:00)
[2019-01-05] MEDS: FAMOTIDINE 20 MG TAB PO SCH ×2 (09:42→18:05)
[2019-01-05] MEDS: LORATADINE/PSEUDOEPHEDRINE 24 HR SR TAB PO SCH (09:43)
[2019-01-05] MEDS: VANCOMYCIN 1GM/NS 250 ML 250 ML IV SCH ×2 (09:43→21:29)
[2019-01-05] MEDS: FUROSEMIDE 40 MG TAB PO SCH (09:44)
[2019-01-05] MEDS: GABAPENTIN 300 MG CAP PO SCH ×3 (09:44→20:51)
--- NOTE | 2019-01-05 10:27 | NUR ---
Pt co pain ;in; rt calf; medicated as order
--- NOTE | 2019-01-05 12:10 | NUR ---
PATEL reached out to Dr. Pena and informed him that per nursing, pt wants to go home and follow up with his infectious disease MD. PATEL asked for plan of care. Dr. Pena states he is waiting for MRI today and IV abx duration will be dependent on findings.
--- NOTE | 2019-01-05 13:30 | Diagnostic Imaging Report ---
TECHNIQUE: Magnetic resonance imaging of the right femur and tibia fibula was performed WITHOUT injected contrast. HISTORY: Pain, cellulitis COMPARISON: None available. FINDINGS: Bone marrow signal is normal. Edema or T1 replacement. Focus of osteonecrosis within the distal femoral metaphysis. Subcutaneous edema and skin thickening on the right lower extremity predominantly involving the left calf. Within the medial gastrocnemius a fluid collection measuring 5 cm in transverse dimension and extending 9 cm in craniocaudal dimension. Generalized muscle atrophy. IMPRESSION: Edema/cellulitis of the right lower extremity with a 9 x 5 cm fluid collection within the medial gastrocnemius could reflect abscess or hematoma. Signed by: Dr. Rob Osman M.D. on 01/05/2019 1:27 PM
--- NOTE | 2019-01-05 16:49 | Diagnostic Imaging Report ---
Exam: Right medial calf fluid collection aspiration History: History of trauma with a medial proximal calf fluid collection that was previously aspirated on 01/02/2019. Results of the growth from that aspirate is no organisms identified and no growth. Comparison: MRI performed this date Findings: Utilizing full barrier sterile technique and local anesthesia with 1% Xylocaine a 5 Turkish Yueh catheter was placed into the medial fluid collection with ultrasound guidance. Only a small amount of sanguinous nonpurulent fluid was able to be aspirated. A second puncture more proximal into the fluid collection was made. A total of only 2-3 cc of fluid was able to be aspirated. The remainder of the sonographic abnormality therefore likely represents hematoma that is not liquid enough to drain. Specimen was sent to the laboratory for culture and sensitivity. Impression: Ultrasound guided aspiration of a medial calf fluid collection. Signed by: Dr. David Hayden DO on 01/05/2019 4:46 PM
[2019-01-05] MEDS: ENOXAPARIN SOD INJ 40 MG/0.4 ML SYR SC SCH (18:05)
--- NOTE | 2019-01-05 19:51 | NUR ---
Nutrition Screen Note RD Recommendation for Physician: -Continue cardiac diet as ordered Plan of Care: RD following, monitoring for tolerance and adequacy Nutrition reason for involvement: LOS Primary Diagnose(s): Acute RLE cellulitis PMH: HTN, asthma, obesity, systolich chf, CAD, resp arrest, allergic rhinitis, former smoker Ht: 72in Wt: 239.13lb BMI: 32.4kg/m2 IBW: 178lb RD Assessment: (01/05) Chart reviewed. Labs and meds reviewed. 58yo M, who was admitted with RLE cellulitis. Visited pt in room who denied significant wt loss, denied decrease in appetite [employer]. Pt denied chewing/swallowing problems and nausea/vomiting. Appetite was good; RN recorded 75-100% meal intake since admission. Will continue to monitor and follow. Current Diet: cardiac diet Malnutrition Evaluation (01/05) The patient does not meet criteria for a specified degree of malnutrition at this time. Will re-evaluate at follow-up as appropriate. Diet Education Needs Assessment: Diet education not indicated. Nutrition Care Level: low Signed: Danielle Bloom, , RD, LD
--- NOTE | 2019-01-05 20:00 | NUR ---
pt received. pt assessed. no ss of distress noted. pt co pain to right lower ext. discussed pain mngt poc. verbalized understanding. will medicate per orders. right lower calf band aid cdi. will cont to follow poc. call monique within reach.
--- NOTE | 2019-01-05 20:15 | NUR ---
pt showered at time. no distress noted. call monique within reach.
--- NOTE | 2019-01-05 20:30 | NUR ---
stucco laborer at bedside. no distress noted. call monique within reach.
[2019-01-05] MEDS: TEMAZEPAM 15 MG CAP PO SCH (20:51)
--- NOTE | 2019-01-05 21:15 | NUR ---
spoke to lab regarding results. spoke to dr rosenberg regarding results stated "cont with vanc as ordered."
--- NOTE | 2019-01-05 23:34 | NUR ---
right ac 20 burning. iv dc'd catheter tip intact. drsg applied to site. x1 attempt for iv access left ac 22g successful. pt tolerated well. no distress noted. call monique within reach. report given to oncoming nurse.
[2019-01-06] MEDS: PIPER-TAZ 3.375 GM 50 ML IV SCH ×2 (00:16→06:15)
[2019-01-06] MEDS: MORPHINE SULFATE INJ 4 MG/ML INJ 1ML IV PRN ×2 (04:12→08:48)
[2019-01-06] MEDS: SODIUM CHLORIDE 0.9% 1000ML 1,000 ML IV SCH (06:22)
[2019-01-06 06:25] VITALS: BP 145/94
--- NOTE | 2019-01-06 07:24 | NUR ---
Report given to oncoming nurse. Call light within reach.
[2019-01-06] MEDS: BUDESONIDE/FORMOTEROL 160/4.5MCG INHALER INH SCH (07:52)
[2019-01-06 08:00] VITALS: BP 131/71
[2019-01-06 08:42] VITALS: BP 131/71
[2019-01-06] MEDS: FAMOTIDINE 20 MG TAB PO SCH (08:42)
[2019-01-06] MEDS: LOSARTAN POTASSIUM 100 MG TAB PO SCH (08:42)
[2019-01-06] MEDS: FUROSEMIDE 40 MG TAB PO SCH (08:42)
[2019-01-06] MEDS: VANCOMYCIN 1GM/NS 250 ML 250 ML IV SCH (08:42)
[2019-01-06] MEDS: LORATADINE/PSEUDOEPHEDRINE 24 HR SR TAB PO SCH (08:42)
[2019-01-06] MEDS: GABAPENTIN 300 MG CAP PO SCH (08:42)
[2019-01-06] MEDS: ONDANSETRON HCL INJ 2MG/ML 2ML 2 MG/ML VIAL IV PRN (08:48)
--- NOTE | 2019-01-06 09:27 | NUR ---
DIscharge Summary A/P: 58yoM Right foreleg cellulitis Right calf hematoma Hypokalemia obesity BMI 32.4 HTn Right leg edema Hx asthma PLAN iv abx f/u cx U/S shows hematoma hba1c/lipids pain control Prop: dispo 01/02 Hba1c/LDl 5.5. ?abscess on CT? Sx consult; cont IV abx vanco/zosyn; leukoyctosis resolved. Check sed rate.Clinically improving. 01/03 s/p drainage of abscess; cont IV abx. 01/04 cont abx; 01/05 check MRI for structural injury of whole leg; cont IV abx. 01/06 re-drianing of abscess pending; abx theraeputic; d/c home f/u pcp 1 week and your infectious disease doctor 3-5 days Stable d/c >35mins. Billy Pena MD, PhD.
[2019-01-06] MEDS ORDERED: CIPRO500 MG PO (09:50)
[2019-01-06] MEDS ORDERED: TYLENOL # 31 EA PO (09:50)
[2019-01-06] MEDS ORDERED: MINOCYCLINE HCL50 MG PO (09:50)
[2019-01-06 12:00] VITALS: BP 143/69
== END 2019-01-06 12:04 | disposition home or self-care (01) | DRG 603 ==
LOC: ER 12:59 → ERHOLD 16:03 → MED/SURG2 16:47
PROVIDERS: ADMIT Internal Medicine; ATTEND Internal Medicine
PROC: 0J9N3ZX Drainage of Right Lower Leg Subcutaneous Tissue and Fascia, Percutaneous Approach, Diagnostic (ICD-10-PCS; principal; 2019-01-02)
PROC: 0J9N3ZX Drainage of Right Lower Leg Subcutaneous Tissue and Fascia, Percutaneous Approach, Diagnostic (ICD-10-PCS; 2019-01-05)
DX: L02.415 Cutaneous abscess of right lower limb (principal); S80.11XA Contusion of right lower leg, initial encounter; I10 Essential (primary) hypertension; G40.909 Epilepsy, unspecified, not intractable, without status epilepticus
CPT/HCPCS: 36415; 74470; 75989; 80048; 80061; 80202; 83036; 84132; 85025; 85379; 85610; 85651; 85730; 87071; 87075; 87205; 90732; 93005; 93971; 94664; 96367; 96376; 99284; J1650; J2001; J2270; J2405; J2543; J3370; J7030; Q9967

== ENCOUNTER → 2019-06-15 | Outpatient (CLI) | payer OTHER ==
[~2019-06-15] MED LIST changes: +ALBUTEROL0.63 MG/3 INH; +CEPHALEXIN500 MG PO; +CIPRO500 MG PO; +GABAPENTIN300 MG PO; +LORATADINE-PSE1 EACH PO; +LOSARTAN POTAS100 MG PO; +MINOCYCLINE HCL50 MG PO; +TEMAZEPAM15 MG PO; +TYLENOL # 31 EA PO
--- NOTE | 2019-06-15 14:06 | Diagnostic Imaging Report ---
EXAMINATION: CHEST 2 VIEWS INDICATION: Pre-operative COMPARISON: None FINDINGS: LINES/TUBES:None LUNGS:The lungs are mildly hyperinflated. No focal consolidation or pulmonary edema. PLEURA:No pleural effusion or pneumothorax. MEDIASTINUM:The cardiomediastinal silhouette appears normal in size and shape. Atherosclerotic calcifications of the thoracic aorta. BONES/SOFT TISSUES:No acute osseous injury. Mild degenerative changes of the visualized spine. ABDOMEN:No free air under the diaphragm. IMPRESSION: No focal pneumonia or pulmonary edema. Signed by: Jeannie Hansen MD on 06/15/2019 2:03 PM
== END ==
LOC: RAD 13:31
PROVIDERS: ATTEND Family Medicine
DX: Z01.818 Encounter for other preprocedural examination (principal)
CPT/HCPCS: 71046

== ENCOUNTER 2019-12-17 15:34 | Inpatient (IN) | payer OTHER ==
[~2019-12-17] VITALS: Ht 177.8 cm; Wt 123.4 kg
[2019-12-17] MEDS ORDERED: SODIUM CHLORIDE 0.9% 1000ML 1,000 ML IV STA (15:52)
[2019-12-17] MEDS ORDERED: ALBUTEROL/IPRATROPIUM 3 ML NEB NEB ONE (16:00)
[2019-12-17] MEDS ORDERED: KETOROLAC TROMETHAMINE 30 MG/ML VIAL ONE (17:15)
--- NOTE | 2019-12-17 17:28 | NUR ---
pt incrediblly hard stick. all nurses tried, lab called, labs now obtained and going to lab to be run. called radiology to take pt for scans. ivfs running. pt sitting up aaox4. gcs 15. skin w/d. fm with pt. all updated plan of care.
[2019-12-17 17:35] LABS: BASOPHILS # (AUTO) 0.1 (0.0-0.1); BASOPHILS % 0.6 % (0.0-1.0); EOSINOPHILS # (AUTO) 0.4 (0.0-0.4); EOSINOPHILS % 2.1 % (0.0-6.0); HEMATOCRIT 38.3 % (38.2-49.6); HEMOGLOBIN 12.6 g/dL (14.0-18.0); LYMPHOCYTES # (AUTO) 1.9 (1.0-3.2); MEAN CORPUSCULAR HEMOGLOBIN 30.1 pg (28-32); MEAN CORPUSCULAR HGB CONC 32.9 g/dL (31-35); MEAN CORPUSCULAR VOLUME 91.6 fL (81-99); MONOCYTES # (AUTO) 1.8 (0.2-0.8); MONOCYTES % 9.6 % (4.4-11.3); NEUTROPHILS # (AUTO) 14.2 (2.1-6.9); NEUTROPHILS % 76.4 % (38.7-80.0); PLATELET COUNT 332 x10e3/uL (140-360); RED BLOOD COUNT 4.18 x10e6/uL (4.3-5.7); RED CELL DISTRIBUTION WIDTH 12.4 % (11.7-14.4)
--- NOTE | 2019-12-17 17:40 | NUR ---
Patient currently recieving CT scan.
[2019-12-17 17:43] LABS: INR 0.94; PROTHROMBIN TIME 13.1 seconds (11.9-14.5)
[2019-12-17 17:44] LABS: PARTIAL THROMBOPLASTIN TIME 28.5 seconds (23.8-35.5)
[2019-12-17 17:54] LABS: ALANINE AMINOTRANSFERASE 11 IU/L (0-55); ALBUMIN 3.1 g/dL (3.5-5.0); ALBUMIN/GLOBULIN RATIO 0.8 (0.8-2.0); ALKALINE PHOSPHATASE 65 IU/L (40-150); ANION GAP 16.8 mmol/L (8-16); BLOOD UREA NITROGEN 12 mg/dL (7-26); BUN/CREATININE RATIO 10 (6-25); CALCIUM 8.5 mg/dL (8.4-10.2); CARBON DIOXIDE 22 mmol/L (22-29); CHLORIDE 95 mmol/L (98-107); CHOL/HDL RATIO 3.2 (3.9-4.7); CHOLESTEROL 140 MD/DL (0-199); CREATININE, SERUM 1.18 mg/dL (0.72-1.25); EST GLOMERULAR FILTRATION RATE > 60 ML/MIN (60-); GLUCOSE 134 mg/dL (74-118); HDL CHOLESTEROL 44 MG/DL (40-60); LDL CHOLESTEROL 58 MG/DL (60-130); LIPASE 30 U/L (8-78); POTASSIUM 3.8 mmol/L (3.5-5.1); SODIUM 130 mmol/L (136-145); TRIGLYCERIDES 191 MG/DL (0-149)
--- NOTE | 2019-12-17 17:55 | Diagnostic Imaging Report ---
EXAMINATION: Head CT HISTORY: Syncope, hypotension COMPARISON: None. TECHNIQUE: Multidetector axial images were obtained without contrast from the foramen magnum to the vertex . The images were reconstructed using brain and bone algorithms. Thin section brain images were reformatted into coronal and sagittal planes. Image quality: Motion/streaking artifact limits the evaluation of the skull base and posterior cranial fossa. Dose modulation, iterative reconstruction, and/or weight based adjustment of the mA/kV was utilized to reduce the radiation dose to as low as reasonably achievable. FINDINGS: Parenchyma: 1. No abnormal densities. 2. No mass or hemorrhage. No CT evidence of acute territorial vascular insult. Extra-axial spaces:No abnormal density. No extra-axial fluid collections Brain volume: Normal for age. Ventricles: No hydrocephalus or displacement. Arteries: No density suggestive of thrombus. Dural sinuses: No abnormal density. Foramen magnum: No mass, Chiari malformation, or basilar invagination. Sella: No obvious mass. Paranasal/mastoid sinuses: Imaged portions unremarkable. Skull/Scalp: No lytic or blastic lesions. No fractures. IMPRESSION: No acute intracranial abnormality, particularly no hemorrhage or cortical infarct. Signed by: Dr. Rhona Wang M.D. on 12/17/2019 5:53 PM
--- NOTE | 2019-12-17 18:02 | Diagnostic Imaging Report ---
EXAMINATION: CHEST SINGLE (PORTABLE) INDICATION: ^ ORDER ^[id number] ^1730 ^Y COMPARISON: 12/06/2019 FINDINGS: AP view TUBES and LINES: None. LUNGS: Limited by body habitus Lungs are well inflated. No definite focal consolidation. Left basilar subsegmental atelectasis. PLEURA: No pneumothorax. Suspected trace right pleural effusion. HEART AND MEDIASTINUM: The cardiomediastinal silhouette is enlarged. BONES AND SOFT TISSUES: No acute osseous lesion. Soft tissues are unremarkable. UPPER ABDOMEN: No free air under the diaphragm. IMPRESSION: Enlarged cardiomediastinal silhouette. Mediastinal lymphadenopathy or hematoma cannot be excluded. Suspected trace right pleural effusion. Signed by: Dr. Fransisco Garcia MD on 12/17/2019 6:00 PM
[2019-12-17 18:20] LABS: CREATINE KINASE 17 IU/L (30-200)
[2019-12-17] MEDS ORDERED: CEFEPIME 1GM/NS 0.9% 50 ML 50 ML IV ONE (18:30)
--- NOTE | 2019-12-17 18:33 | NUR ---
PT HAS BEEN INFORMED MULTIPLE TIMES SINCE ARRIVAL FOR NEED FOR URINE. PT DECLINED CATH UA. PT GIVEN WATER AT HIS REQUEST TO HELP, URINAL AT BEDRAIL, PT ASKED MULTIPLE TIMES BY MULTIPLE STAFF MEMBERS FOR UA.
[2019-12-17 18:48] LABS: BILIRUBIN,URINE NEGATIVE (NEGATIVE); CLARITY,URINE SL CLOUDY (CLEAR); COLOR,URINE STRAW (YELLOW); KETONES,URINE NEGATIVE (NEGATIVE); LEUKOCYTE ESTERASE ,URINE NEGATIVE (NEGATIVE); NITRITE,URINE NEGATIVE (NEGATIVE); PROTEIN,URINE DIPSTICK NEGATIVE (NEGATIVE); URINE UROBILINOGEN 1 mg/dL (0.2 - 1)
[2019-12-17 18:50] LABS: AMPHETAMINES SCREEN,URINE NEGATIVE (NEGATIVE); BENZODIAZEPINES SCREEN,URINE POSITIVE (NEGATIVE); PHENCYCLIDINE SCREEN,URINE NEGATIVE (NEGATIVE)
--- NOTE | 2019-12-17 18:50 | NUR ---
GREEN SHEET DONE AND ON CHART PER POLICY
--- NOTE | 2019-12-17 19:01 | NUR ---
UA obtained and sent to lab. IV abx infusing. 20g piv placed to R shoulder/bicep x 1 attempt. Pt currently receiving CT scan with contrast.
[2019-12-17 19:03] LABS: BACTERIA,URINE MANY /HPF; EPITHELIAL CELLS,URINE FEW /LPF; WBC,URINE (MAN) 0-5 /HPF (0-5)
--- NOTE | 2019-12-17 20:05 | Diagnostic Imaging Report ---
EXAM: CTA of the Thoracoabdominal Aorta and Pelvic Arteries WITH and without Contrast INDICATION: ^DISSECTION ^[id number] ^190 COMPARISON: None. TECHNIQUE: Multi-detector CT technology was employed. CTA Gated axial imaging of the chest, abdomen, and pelvis was performed before and after the administration of IV contrast. IV CONTRAST: 100 mL of Omnipaque 370 ORAL CONTRAST: None COMPLICATIONS: None RADIATION DOSE: Total DLP: 1977.72 mGy*cm Estimated effective dose: (DLP x 0.015 x size factor) mSv CTDIvol has been reviewed. It is below the limits set by the Radiation Protocol Committee (RPC). For optimization of anatomic evaluation, multiplanar reconstruction, maximum intensity projections, and advanced 3-D off-line postprocessing were performed on a dedicated stand-alone workstation under the direct supervision of the interpreting physician. FINDINGS: Potential study limitations: None. LINES/ TUBES: None. VASCULAR WITH ADVANCED 3-D OFF-LINE POSTPROCESSING: Aortic valve morphology is trileaflet and contains no calcifications. The thoracic aorta is normal in course, caliber, and contour. There is no acute aortic pathology, such as dissection, intramural hematoma, or contained rupture. Aortic plaques: Mild. The arch vessel branching pattern is conventional. All of the arch branch vessels appear widely patent in their proximal portions. The abdominal aorta is normal in course, caliber, and contour. There is no acute aortic pathology . Aortic plaques: Mild. No abnormal distention or aneurysmal dilatation of the thoracic or abdominal aorta. The celiac axis, SMA, and PHAN are patent, however there is narrowing of the proximal celiac axis. Single right and 2 left renal arteries, are patent. The pelvic arteries are normal in caliber and contour. There are moderate atherosclerotic changes of the pelvic arteries. LUNGS AND AIRWAYS: Approximately 2.6 x 2.4 cm apical segment left lower lobe cavitary lesion. Airways are patent. PLEURA: No pneumothorax. Small right pleural effusion with adjacent compressive atelectasis. HEART AND MEDIASTINUM: Ill-defined 2.4 cm left thyroid nodule. Significant mediastinal and bilateral hilar lymphadenopathy, causing narrowing of the main left pulmonary artery. For example 4 x 3 cm right paratracheal mass. No axillary lymphadenopathy. The main pulmonary artery is normal in size. The cardiac chambers demonstrate normal atrioventricular and ventriculoarterial concordance, and systemic and pulmonary venous return. The cardiac chambers are normal in size. There are mild coronary calcifications identified, though this study was not optimized for coronary artery evaluation. There is no pericardial effusion. ABDOMEN: The liver, gallbladder, spleen, and pancreas appear normal. The adrenal glands appear normal. Both kidneys are normal in size, shape, and density. There is no abnormal mass or hydronephrosis. PELVIS: Prostate coarse calcifications. Bladder is under distended, demonstrating wall thickening. No inguinal lymphadenopathy. 2.1 x 2 cm mesocolon lymph node (series 4, image 224) with adjacent colonic collapse. 2.4 x 1.6 cm right common iliac lymph node. Another 1.2 cm right common iliac lymph node. Scattered intraperitoneal lymph nodes, the largest measuring 1.7 cm in the aortocaval region. Periportal lymph node measuring 2.9 x 2 cm. 2.8 x 3.1 cm right retroperitoneal lesion (series 4, image 162). Multiple adjacent smaller nodules. There is also more inferiorly small amount of complex retroperitoneal fluid. No free fluid or free air within the abdomen or pelvis. No evidence of bowel obstruction. BONES: Unremarkable Small bilateral fat-containing inguinal hernia. IMPRESSION: 1. Normal thoracic aorta. No acute aortic pathology identified. 2. Normal abdominal aorta. No acute abdominal aortic pathology. 3. Left lower lobe cavitary lesion along with mediastinal and hilar lymphadenopathy, which is concerning for metastatic disease. 4. Small right pleural effusion with adjacent compressive atelectasis. 5. Right mesocolon lymph node is indeterminate. The adjacent colon is collapsed, which could be due to peristalsis or underlying apple core lesion. Recommend correlation with colonoscopy. 6. Right iliac chain and retroperitoneal lymph nodes are concerning for metastatic disease. 7. Right retroperitoneal metastatic nodules as well as small amount of complex fluid, likely hematoma without identifiable source. Signed by: Dr. Fransisco Garcia MD on 12/17/2019 8:03 PM
[2019-12-17] MEDS ORDERED: ONDANSETRON HCL INJ 2MG/ML 2ML 2 MG/ML VIAL IV PRN (21:15)
[2019-12-17] MEDS ORDERED: ASPIRIN 81 MG CHEW TAB PO ONE (21:15)
[2019-12-17] MEDS ORDERED: MORPHINE SULFATE 2 MG/ML SYR 1ML IV PRN (21:15)
[2019-12-17 21:49] LABS: BASOPHILS # (AUTO) 0.1 (0.0-0.1); BASOPHILS % 0.5 % (0.0-1.0); EOSINOPHILS # (AUTO) 0.3 (0.0-0.4); HEMATOCRIT 35.3 % (38.2-49.6); HEMOGLOBIN 11.7 g/dL (14.0-18.0); LYMPHOCYTES % 11.9 % (18.0-39.1); MEAN CORPUSCULAR HEMOGLOBIN 30.1 pg (28-32); MEAN CORPUSCULAR HGB CONC 33.1 g/dL (31-35); MEAN CORPUSCULAR VOLUME 90.7 fL (81-99); MONOCYTES # (AUTO) 1.2 (0.2-0.8); MONOCYTES % 7.5 % (4.4-11.3); NEUTROPHILS # (AUTO) 12.8 (2.1-6.9); NEUTROPHILS % 77.1 % (38.7-80.0); PLATELET COUNT 366 x10e3/uL (140-360); RED BLOOD COUNT 3.89 x10e6/uL (4.3-5.7); RED CELL DISTRIBUTION WIDTH 12.4 % (11.7-14.4)
[2019-12-17 22:14] LABS: CREATINE KINASE MB 0.3 ng/mL (0-5.0)
[2019-12-17] MEDS ORDERED: MORPHINE SULFATE INJ 4 MG/ML INJ 1ML IV STA (22:52)
[2019-12-17] MEDS: PIPER-TAZ 3.375 GM 50 ML IV SCH (23:30)
[2019-12-17] MEDS: SODIUM CHLORIDE 0.9% 1000ML 1,000 ML IV SCH (23:30)
[2019-12-18] VITALS (9 sets, daily range): BP systolic 99–131; BP diastolic 58–74
--- NOTE | 2019-12-18 | NUR ---
Received patient from ER, alert and oriented, with ongoing IVF via infusion pump, IV access to right upper arm 20g, 22g left hand saline lock, call light within easy reach, bed alarm activated. Will continue to monitor
[2019-12-18] MEDS ORDERED: SODIUM CHLORIDE 0.9% 100 ML ONE (01:38)
[2019-12-18] MEDS ORDERED: IOPAMIDOL 370 MG/ML 200 ML INFUS..BTL INJ ONE (01:38)
--- NOTE | 2019-12-18 02:30 | NUR ---
RT was informed that patient has due EKG at 5AM
[2019-12-18] MEDS: PIPER-TAZ 3.375 GM 50 ML IV SCH ×4 (03:48→21:30)
[2019-12-18] MEDS: MORPHINE SULFATE INJ 4 MG/ML INJ 1ML IV PRN ×5 (03:48→21:49)
--- NOTE | 2019-12-18 04:05 | NUR ---
Rapid flu specimen was sent to lab
--- NOTE | 2019-12-18 06:14 | NUR ---
History and Physical cc: near passing out HPI: 58yoM, PCP , almost passed out, found to have LAD of mediastinum/hilum/retroperitoneum and left lung cavitary lesion. Pt states main complaint was mid chest and back pain for 1 month. No weight loss. No cough; Some blood tingled sputum present. Only travel was to [place]. PMH: HTN, asthma, obesity, systolic chf, CAD, resp arrest, allergic rhinitis, former smoker, right foreleg cellulitis, right calf hematoma PSHx: B/l knee replacement, Allergies; see emr [facility]; ; hx cgis Meds; see MAR ROS: no f/c/s/N/v/D/SCOTT/vision changes/back pain/skin rash/focal limb weakness. v/s revd PE: tired appeairng anicteric ns1s2 mod bs soft nt nd skin dry flat affect a&ox3; whalen labs/med; revd A/P: 58yoM Left lung cavitary lesion- pulm consult; Mediastinum/Hilar LAD- onc consult Retroperitoneum LAD Hyponatrema- hydrate Hx Cig use Chr Systolic CHF Obesity- hbab1c/lipids BMI 39 DVT prop: pepcid; lovenox Billy Pena MD, PhD.
[2019-12-18] MEDS ORDERED: ACETAMINOPHEN 325 MG TAB PO PRN (06:15)
[2019-12-18] MEDS ORDERED: SENNOSIDES 8.6 MG TAB PO PRN (06:15)
[2019-12-18] MEDS: SODIUM CHLORIDE 0.9% 1000ML 1,000 ML IV SCH ×4 (06:17→21:07)
--- NOTE | 2019-12-18 07:00 | NUR ---
walking rounds done, patient is in stable condition, call light within easy reach
--- NOTE | 2019-12-18 07:20 | NUR ---
paged Dr. Dallas re left lung cavitary lesion and LAD, spoke to Nikky, answering service
--- NOTE | 2019-12-18 07:25 | NUR ---
paged Dr. Jeffery oneal [facility], spoke to Lm , answering service
[2019-12-18] MEDS: ONDANSETRON HCL INJ 2MG/ML 2ML 2 MG/ML VIAL IV PRN ×4 (07:54→21:49)
[2019-12-18] MEDS: FAMOTIDINE 20 MG TAB PO SCH ×2 (07:54→15:50)
[2019-12-18 08:00] LABS: BASOPHILS # (AUTO) 0.1 (0.0-0.1); BASOPHILS % 0.6 % (0.0-1.0); EOSINOPHILS # (AUTO) 0.6 (0.0-0.4); LYMPHOCYTES # (AUTO) 2.1 (1.0-3.2); LYMPHOCYTES % 13.4 % (18.0-39.1); MEAN CORPUSCULAR HGB CONC 32.4 g/dL (31-35); MEAN CORPUSCULAR VOLUME 92.6 fL (81-99); MONOCYTES # (AUTO) 1.9 (0.2-0.8); MONOCYTES % 12.1 % (4.4-11.3); NEUTROPHILS # (AUTO) 10.9 (2.1-6.9); PLATELET COUNT 338 x10e3/uL (140-360); RED BLOOD COUNT 3.67 x10e6/uL (4.3-5.7); RED CELL DISTRIBUTION WIDTH 12.4 % (11.7-14.4)
[2019-12-18 08:22] LABS: ALBUMIN 2.7 g/dL (3.5-5.0); ALBUMIN/GLOBULIN RATIO 0.8 (0.8-2.0); CALCIUM 8.3 mg/dL (8.4-10.2); CREATININE, SERUM 1.23 mg/dL (0.72-1.25)
[2019-12-18 08:41] LABS: CHOL/HDL RATIO 3.2 (3.9-4.7)
--- NOTE | 2019-12-18 08:41 | Diagnostic Imaging Report ---
Chest, portable AP view History: Chest pain Comparison: 12/17/2019 IMPRESSION: The cardiac silhouette is stably enlarged. Bibasilar atelectasis is present. There is no focal consolidation, sizable pleural effusion, or pneumothorax. Signed by: Travis Duran MD on 12/18/2019 8:39 AM
[2019-12-18 09:15] LABS: CREATINE KINASE MB 2.7 ng/mL (0-5.0)
[2019-12-18] MEDS: GABAPENTIN 300 MG CAP PO SCH ×3 (09:40→21:30)
[2019-12-18] MEDS: ASPIRIN 81 MG ENTERIC COATED PO SCH (09:40)
--- NOTE | 2019-12-18 12:39 | Consultation ---
DATE OF CONSULTATION: 12/18/2019 Pulmonary Consultation REASON FOR CONSULT: Cavitary lesion in the lung. HISTORY OF PRESENT ILLNESS: Mr. Baez is a 59-year-old male, who presented to the emergency room with chest pain. He has history of asthma. The patient is on inhaler. He was seen by Dr. Small in 2015 and then he has not followed up in our office. He is having shortness of breath and wheezing and cough. He denies any nausea, vomiting, or diarrhea. He has [id number]-gn-[id number] abdominal discomfort, which relieves with pain medication. REVIEW OF SYSTEMS: GENERAL: Denies any fever or chills. HEAD: Denies any head trauma. ENT: Denies any earache. CVS: Chest pain. RESPIRATORY: Shortness of breath. The rest of the review of systems are negative except as in HPI. PAST MEDICAL HISTORY: Arthritis. FAMILY AND SOCIAL HISTORY: He is an ex-smoker, smoked for 40 years, quit 6 years ago, one-pack per day. He denies any alcohol use. PHYSICAL EXAMINATION: VITAL SIGNS: Temperature 97.3, pulse of 80, blood pressure 122/67, respiratory rate of 18, and O2 saturation 97%. HEENT: Head is atraumatic and normocephalic. NECK: Supple. CHEST: Wheezing bilaterally. HEART: S1 and S2 audible. ABDOMEN: Soft. EXTREMITIES: No pedal edema. NEUROLOGIC: Awake and alert. No focal neurologic deficit. LABORATORY DATA: Reviewed. White count of 15,000, hemoglobin 11.0, and platelets 338. Chemistry reviewed. CT of the chest and abdomen and pelvis, all reviewed. The patient has a cavitary lesion in the left upper lobe and extensive mediastinal lymphadenopathy is also visible. ASSESSMENT/PLAN: Mr. Baez is a 59-year-old male, who presented to the emergency room with chest pain and abdominal discomfort. CT showing evidence of cavitary lesion in the left lung. I will order CT-guided biopsy. He has extensive mediastinal lymphadenopathy as well, high likelihood of all this being malignant. If the CT-guided biopsy is not possible, then we will consider doing endobronchial ultrasound and transbronchial needle aspiration biopsy at [place]. I will start the patient on nebulizer treatment, oxygen, and low-dose steroids for possibility of asthma versus chronic obstructive pulmonary disease exacerbation. Thank you for this consult. Cruz MD BENSON Dallas/KUN /[phone]
[2019-12-18] MEDS: ENOXAPARIN SOD INJ 40 MG/0.4 ML SYR SC SCH (13:07)
[2019-12-18] MEDS: ALBUTEROL/IPRATROPIUM 3 ML NEB NEB SCH ×2 (13:10→19:30)
[2019-12-18] MEDS: METHYLPREDNISOLONE SOD SUCC 40 MG/ML VIAL 1ML IV SCH ×2 (14:09→21:30)
[2019-12-18] MEDS ORDERED: ZOLPIDEM TARTRATE 5 MG TAB PO PRN (21:00)
[2019-12-18] MEDS: TEMAZEPAM 15 MG CAP PO SCH (21:30)
--- NOTE | 2019-12-18 21:30 | NUR ---
PATIENT RESTING IN BED IN STABLE CONDITION BOTH EYES CLOSED, NO SIGNS OF DISTRESS NOTED. IV FLUIDS ARE RUNNING AT ORDERED RATE AND PATIENT VOICES PAIN AT A LEVEL OF 8 AND WAS MEDICATED ORDERED. PATIENT IS AWARE OF NPO AFTER MIDNIGHT FOR PROCEDURE TOMORROW. BED IS IN LOW POSITION, BOTH SIDE RAILS ARE UP, CALL LIGHT IS WITHIN EASY REACH, WILL CONTINUE TO MONITOR.
[2019-12-19] VITALS (15 sets, daily range): BP systolic 111–146; BP diastolic 56–94
[2019-12-19] MEDS: ALBUTEROL/IPRATROPIUM 3 ML NEB NEB SCH ×4 (01:00→19:33)
[2019-12-19] MEDS: MORPHINE SULFATE INJ 4 MG/ML INJ 1ML IV PRN ×3 (01:35→16:26)
[2019-12-19] MEDS: ONDANSETRON HCL INJ 2MG/ML 2ML 2 MG/ML VIAL IV PRN ×4 (01:35→20:39)
[2019-12-19] MEDS: SODIUM CHLORIDE 0.9% 1000ML 1,000 ML IV SCH ×2 (03:42→13:07)
[2019-12-19] MEDS: PIPER-TAZ 3.375 GM 50 ML IV SCH ×4 (03:42→20:39)
[2019-12-19] MEDS: METHYLPREDNISOLONE SOD SUCC 40 MG/ML VIAL 1ML IV SCH ×3 (06:05→20:39)
--- NOTE | 2019-12-19 06:28 | NUR ---
IM- progress note O/Nsee below ROS: no f/c/s/N/v/D/SCOTT/vision changes/back pain/skin rash/focal limb weakness. v/s revd PE: tired appeairng anicteric ns1s2 mod bs soft nt nd skin dry flat affect a&ox3; whalen labs/med; revd A/P: 58yoM Left lung cavitary lesion- pulm consult; Mediastinum/Hilar LAD- onc consult Retroperitoneum LAD Hyponatrema- hydrate Hx Cig use Chr Systolic CHF Obesity- hbab1c/lipids BMI 39 DVT prop: pepcid; lovenox 12/19 hba1c/LDL 5.9/58 PreDM; Bx pending; Billy Pena MD, PhD.
[2019-12-19] MEDS: FAMOTIDINE 20 MG TAB PO SCH ×2 (07:30→16:09)
--- NOTE | 2019-12-19 07:40 | NUR ---
PATIENT IS ALERT AND IN STABLE CONDITION WITH NO S/S OF RESPIRATORY DISTRESS. PATIENT C/O EPIGASTRIC PAIN- NPO FOR PROCEDURE AT 0800. IV FLUIDS INFUSING. TELEMETRY APPLIED. CALL LIGHT IS WITHIN REACH, PATIENT INSTRUCTED TO CALL FOR ASSISTANCE NEEDED.
[2019-12-19] MEDS: ASPIRIN 81 MG ENTERIC COATED PO SCH (08:11)
[2019-12-19] MEDS: GABAPENTIN 300 MG CAP PO SCH ×3 (08:11→20:39)
[2019-12-19] MEDS ORDERED: FENTANYL CITRATE/PF 100MCG/2 ML INJ ONE (11:02)
[2019-12-19] MEDS ORDERED: MIDAZOLAM HCL 2 MG/2 ML VIAL ONE (11:02)
--- NOTE | 2019-12-19 13:35 | Diagnostic Imaging Report ---
Exam: Chest radiograph Clinical History: Status post lung biopsy Comparison: December 18, 2019 Findings: There is no evidence of pulmonary consolidation, pleural effusion, or pneumothorax. The cardiac size is within normal limits. The regional osseous structures are unremarkable. Signed by: Dr. Marino Pérez MD on 12/19/2019 1:32 PM
--- NOTE | 2019-12-19 14:54 | Diagnostic Imaging Report ---
Exam: CT-guided lung biopsy Clinical History: Pulmonary nodule Consent: Benefits and risks were explained to the patient who gave consent to the procedure. Sedation: The procedure was performed with conscious sedation. Continuous cardiorespiratory monitoring was performed by a registered nurse throughout the procedure. The total sedation time is 30 minutes. Medication: Versed 2 mg IV, fentanyl 100 mcg IV Procedure: The left posterior chest was prepped and draped in usual sterile fashion. 1% lidocaine was used as local anesthetic. Under CT guidance, a 19-gauge guiding needle was inserted into a 2.8 cm cavitary lesion in the left upper lobe. In coaxial fashion, 22-gauge needle was used to perform FNA. 2 passes were made. Upon request by the pathologist, core biopsy was performed using 20-gauge needle. 2 passes were made. The specimens were given to pathology and determined to be adequate. Postbiopsy CT demonstrated no evidence of pneumothorax. The patient tolerated the procedure well without any adverse reactions. She left the department in stable condition. Complication: None immediate Impression: 1. CT-guided lung biopsy as described. Signed by: Dr. Marino Pérez MD on 12/19/2019 2:51 PM
--- NOTE | 2019-12-19 15:32 | Diagnostic Imaging Report ---
Exam: Chest one view Comparison: December 19, 2019 Clinical history: Status post lung biopsy Findings: There is no evidence of pulmonary consolidation, pleural effusion, or pneumothorax. The patient's known cavitary lesion in the left upper lobe is not well seen on the chest radiograph, please refer to the recent CT for further details. The cardiac size is within normal limits. The regional osseous structures are unremarkable. Signed by: Dr. Marino Pérez MD on 12/19/2019 3:30 PM
[2019-12-19] MEDS: ENOXAPARIN SOD INJ 40 MG/0.4 ML SYR SC SCH (16:09)
--- NOTE | 2019-12-19 19:31 | NUR ---
PATIENT IN STABLE CONDITION WITH NO S/S OF RESPIRATORY DISTRESS. PATIENT REFUSED TO BE CONNECTED TO CONTINUOUS FLUIDS- PATIENT ONLY WANTS TO BE CONNECTED TO THE IV FOR IV ANTIBIOTICS ONLY. CALL LIGHT IS WITHIN REACH, PATIENT INSTRUCTED TO CALL FOR ASSISTANCE NEEDED. BEDSIDE REPORT GIVEN TO ONCOMING NURSE.
[2019-12-19] MEDS: MORPHINE SULFATE 2 MG/ML SYR 1ML IV PRN (20:34)
[2019-12-19] MEDS: TEMAZEPAM 15 MG CAP PO SCH (20:39)
[2019-12-19] MEDS ORDERED: MORPHINE SULFATE INJ 4 MG/ML INJ 1ML IV PRN (21:30)
[2019-12-20] VITALS: BP 149/78
[2019-12-20 00:04] VITALS: BP 149/78
[2019-12-20] MEDS: PIPER-TAZ 3.375 GM 50 ML IV SCH ×2 (02:18→09:00)
[2019-12-20] MEDS: MORPHINE SULFATE 2 MG/ML SYR 1ML IV PRN ×2 (02:18→06:38)
[2019-12-20] MEDS: ALBUTEROL/IPRATROPIUM 3 ML NEB NEB SCH ×2 (02:33→07:15)
[2019-12-20 04:00] VITALS: BP 126/68
[2019-12-20] MEDS: METHYLPREDNISOLONE SOD SUCC 40 MG/ML VIAL 1ML IV SCH (05:34)
[2019-12-20 06:06] VITALS: BP 126/68
--- NOTE | 2019-12-20 06:10 | NUR ---
D/.C summary Principal Dx: Left lung cavitary lesion= Lung cancer- pulm consult; Mediastinum/Hilar LAD- onc consult Retroperitoneum LAD Hyponatrema- hydrate Secondary dx Hx Cig use Chr Systolic CHF Obesity- hbab1c/lipids BMI 39 DVT prop: pepcid; lovenox 2 hba1c/LDL 5.9/58 PreDM; Bx pending; d/c home stable f/u 1 week and 1 week and oncology 1 week d/c>35mins Billy Pena MD, PhD.
[2019-12-20 06:30] LABS: BASOPHILS # (AUTO) 0.1 (0.0-0.1); BASOPHILS % 0.2 % (0.0-1.0); HEMATOCRIT 32.3 % (38.2-49.6); HEMOGLOBIN 10.2 g/dL (14.0-18.0); LYMPHOCYTES # (AUTO) 0.9 (1.0-3.2); LYMPHOCYTES % 4.4 % (18.0-39.1); MEAN CORPUSCULAR HEMOGLOBIN 29.6 pg (28-32); MEAN CORPUSCULAR HGB CONC 31.6 g/dL (31-35); MEAN CORPUSCULAR VOLUME 93.6 fL (81-99); MONOCYTES # (AUTO) 1.6 (0.2-0.8); MONOCYTES % 7.7 % (4.4-11.3); NEUTROPHILS % 85.9 % (38.7-80.0); PLATELET COUNT 372 x10e3/uL (140-360); RED BLOOD COUNT 3.45 x10e6/uL (4.3-5.7); RED CELL DISTRIBUTION WIDTH 12.3 % (11.7-14.4)
[2019-12-20 06:51] LABS: ANION GAP 16.2 mmol/L (8-16); BLOOD UREA NITROGEN 15 mg/dL (7-26); CARBON DIOXIDE 23 mmol/L (22-29); CHLORIDE 102 mmol/L (98-107); GLUCOSE 156 mg/dL (74-118); POTASSIUM 4.2 mmol/L (3.5-5.1); SODIUM 137 mmol/L (136-145)
[2019-12-20 07:42] VITALS: BP 130/78
[2019-12-20 08:00] VITALS: BP 130/78
[2019-12-20 08:10] LABS: BUN/CREATININE RATIO 17 (6-25); EST GLOMERULAR FILTRATION RATE > 60 ML/MIN (60-)
[2019-12-20] MEDS: FAMOTIDINE 20 MG TAB PO SCH (08:11)
[2019-12-20 08:20] LABS: LYMPHOCYTES % (MANUAL) 6 % (19-48); MONOCYTES % (MANUAL) 6 % (3.4-9.0); NEUTROPHILS % (MANUAL) 88 % (40-74)
--- NOTE | 2019-12-20 09:19 | NUR ---
spoke to Dr. Peñaloza with pathlogy informed that Dr. Dallas wants AFB order on lung specimen, states "she will perform test" to yield AFB result, dr dallas informed
--- NOTE | 2019-12-20 15:02 | Consultation ---
DATE OF CONSULTATION: 12/18/[address] Billy Pena. HISTORY OF PRESENT ILLNESS: Mr. Baez is a 59-year-old male, who has been referred to me for evaluation of "abdominal cancer." The patient had presented with weakness, shortness of breath, subsequently multiple findings on CT scan. SOCIAL HISTORY: History of smoking in the past. FAMILY HISTORY: Noncontributory. ALLERGIES: REPORTED NONE. MEDICATIONS: At this time: 1. Zosyn. 2. Sodium chloride. 3. Aspirin. 4. Ondansetron. 5. Sennosides. 6. Temazepam. 7. Lovenox. 8. Gabapentin. 9. Zolpidem. 10. Morphine. REVIEW OF SYSTEMS: HEENT: Normal. CARDIAC: Normal. RESPIRATORY: Now has a lesion in the lung. GI: Normal. : Normal. MUSCULOSKELETAL: Normal. SKIN AND BREASTS: Normal. NEUROENDOCRINE: Essentially normal. PHYSICAL EXAMINATION: GENERAL: A rather obese male. No adenopathy. HEART: Within normal limits. LUNGS: Show a few crepitations. ABDOMEN: Obese. RECTAL: Deferred. CENTRAL NERVOUS SYSTEM: Essentially normal. EXTREMITIES: Essentially normal. LABORATORY DATA: Lab shows a hemoglobin of 11, hematocrit count of 34 with normal indices, white count of 15,800, platelets of 338,000. Sodium 130, potassium 4.0, chloride is 95, CO2 of 26, BUN 18, creatinine 1.23, bilirubin 1, SGOT 9, SGPT 11, alkaline phosphatase 55. The CT of the chest shows a 4 x 3 cm right paratracheal mass. A left lung cavitating lesion 2.6 x 2.4 cm. Mediastinal adenopathy and multiple intraabdominal lymph nodes. IMPRESSION: 1. Anemia of chronic disease. 2. Hyponatremia. 3. Hypoalbuminemia of 3.1. 4. Hyperglobulinemia of 3.7. 5. Benzodiazepines, opiates and methamphetamine in the urine. 6. Left lower lobe cavitating lesion 2.6 x 2.4 cm. 7. 4 x 3 cm right paratracheal mass. 8. Mediastinal adenopathy. 9. Multiple intraabdominal lymph nodes. PLAN, COMMENTS AND SUGGESTIONS: Bronchoscopy or a biopsy EGFR as well as PDL1 since index of suspicion is very high that this is a squamous cell carcinoma because of the hyponatremia. I will confine myself to Hematology Oncology. Further staging even though this is a stage IV disease, the mediastinal lymph nodes will make it is stage IIIB, as well as the intraabdominal lymph nodes if this represents metastases, which clinically it is, it will make it as stage IV. Further workup will include a PET scan as a baseline as well as MRI of the brain. The insurance will not allow me to do the PET scan as it is approximately 25,000 dollars unless a biopsy confirmation is done. Thank you very much for allowing me to participate in management of this patient. I will follow this patient as outpatient once home. Myra Gil MD MAQ/MODL /[id number] cc: MD Nancy De MD
== END 2019-12-20 10:00 | disposition home or self-care (01) | DRG 840 ==
LOC: ER 15:34 → ERHOLD 21:07 → IMCU 12-18 00:04 → OBSVTOIN 12-18 14:46
PROVIDERS: ADMIT Internal Medicine; ATTEND Internal Medicine
PROC: 0BBJ3ZX Excision of Left Lower Lung Lobe, Percutaneous Approach, Diagnostic (ICD-10-PCS; principal; 2019-12-19)
PROC: 0B9J3ZX Drainage of Left Lower Lung Lobe, Percutaneous Approach, Diagnostic (ICD-10-PCS; 2019-12-19)
DX: C86.5 Angioimmunoblastic T-cell lymphoma (principal); J98.51 Mediastinitis; K68.9 Other disorders of retroperitoneum; C34.91 Malignant neoplasm of unspecified part of right bronchus or lung; J98.11 Atelectasis; E87.1 Hypo-osmolality and hyponatremia; I50.22 Chronic systolic (congestive) heart failure; J90 Pleural effusion, not elsewhere classified; Z87.891 Personal history of nicotine dependence; D63.8 Anemia in other chronic diseases classified elsewhere; E88.09 Other disorders of plasma-protein metabolism, not elsewhere classified; R59.0 Localized enlarged lymph nodes; F19.90 Other psychoactive substance use, unspecified, uncomplicated; I11.0 Hypertensive heart disease with heart failure; E66.9 Obesity, unspecified; Z68.39 Body mass index [BMI] 39.0-39.9, adult
CPT/HCPCS: 10009; 32405; 36415; 70450; 71045; 71275; 74174; 74470; 80048; 80053; 80061; 80307; 81001; 82550; 82553; 83036; 83605; 83690; 83880; 84484; 85025; 85610; 85730; 87040; 87400; 88172; 88173; 88305; 88342; 93005; 94640; 99152; 99153; 99284; G0378; J0692; J1650; J1885; J2250; J2270; J2405; J2543; J2920; J3010; J7030; J7050; Q9967

== ENCOUNTER 2019-12-31 11:42 | Inpatient (IN) | payer OTHER ==
[~2019-12-31] VITALS: Ht 177.8 cm; Wt 138.3 kg
[2019-12-31] MEDS ORDERED: SODIUM CHLORIDE 0.9% 1000ML 1,000 ML IV STA (12:11)
[2019-12-31] MEDS ORDERED: PIPER-TAZ 3.375 GM 50 ML IV ONE (12:15)
[2019-12-31] MEDS ORDERED: DIATRIZOATE MEGL/DIATRIZOA SOD 30 ML BTL PO ONE (12:27)
[2019-12-31 12:41] LABS: BASOPHILS # (AUTO) 0.1 (0.0-0.1); BASOPHILS % 0.5 % (0.0-1.0); EOSINOPHILS # (AUTO) 0.6 (0.0-0.4); HEMATOCRIT 26.6 % (38.2-49.6); HEMOGLOBIN 8.3 g/dL (14.0-18.0); MEAN CORPUSCULAR HEMOGLOBIN 29.9 pg (28-32); MEAN CORPUSCULAR HGB CONC 31.2 g/dL (31-35); MEAN CORPUSCULAR VOLUME 95.7 fL (81-99); MONOCYTES # (AUTO) 1.4 (0.2-0.8); NEUTROPHILS # (AUTO) 15.7 (2.1-6.9); NEUTROPHILS % 78.5 % (38.7-80.0); PLATELET COUNT 57 x10e3/uL (140-360); RED BLOOD COUNT 2.78 x10e6/uL (4.3-5.7); RED CELL DISTRIBUTION WIDTH 13.8 % (11.7-14.4)
[2019-12-31 12:53] LABS: INR 1.02; PARTIAL THROMBOPLASTIN TIME 21.6 seconds (23.8-35.5)
--- NOTE | 2019-12-31 13:59 | NUR ---
History and Physical cc: diffuse body pain HPI: 58yoM, PCP , recently dx with lung cancer, now with diffuse body pain, found to be septic. PMH: HTN, asthma, obesity, systolic chf, CAD, resp arrest, allergic rhinitis, former smoker, right foreleg cellulitis, right calf hematoma, Left lung cavitary lesion= cancer, Mediastinal LAD, Hilar LAD, Retroperitoneal LAD, Hyponatremia, Chr Systolic CHF, Obesity PSHx: B/l knee replacement, Allergies; see emr [facility]; ; hx cgis Meds; see MAR ROS: no f/c/s/N/v/D/SCOTT/vision changes/back pain/skin rash/focal limb weakness. v/s revd PE: tired appeairng anicteric ns1s2 mod bs soft nt nd skin dry flat affect a&ox3; whalen labs/med; revd A/P: 58yoM Left lung cavitary lesion- pulm consult; Mediastinum/Hilar LAD- onc consult Retroperitoneum LAD Hyponatrema- hydrate Hx Cig use Chr Systolic CHF Obesity- hbab1c/lipids BMI 39 DVT prop: pepcid; lovenox Billy Pena MD, PhD.
[2019-12-31] MEDS ORDERED: ACETAMINOPHEN/CODEINE 300MG - 30MG TAB PO PRN (14:00)
[2019-12-31] MEDS ORDERED: DOCUSATE SODIUM 100 MG CAP PO PRN (14:00)
[2019-12-31] MEDS ORDERED: ONDANSETRON HCL INJ 2MG/ML 2ML 2 MG/ML VIAL IV PRN ×2 (14:00→16:30)
[2019-12-31 14:15] LABS: BILIRUBIN,URINE NEGATIVE (NEGATIVE); CLARITY,URINE SL CLOUDY (CLEAR); COLOR,URINE YELLOW (YELLOW); KETONES,URINE NEGATIVE (NEGATIVE); LEUKOCYTE ESTERASE ,URINE NEGATIVE (NEGATIVE); NITRITE,URINE NEGATIVE (NEGATIVE); PROTEIN,URINE DIPSTICK NEGATIVE (NEGATIVE); URINE UROBILINOGEN 0.2 mg/dL (0.2 - 1)
[2019-12-31 14:16] LABS: AMPHETAMINES SCREEN,URINE NEGATIVE (NEGATIVE); BENZODIAZEPINES SCREEN,URINE POSITIVE (NEGATIVE); PHENCYCLIDINE SCREEN,URINE NEGATIVE (NEGATIVE)
[2019-12-31 14:24] LABS: BACTERIA,URINE MODERATE /HPF
[2019-12-31 14:25] LABS: EPITHELIAL CELLS,URINE FEW /LPF
[2019-12-31 14:42] LABS: ALBUMIN 2.9 g/dL (3.5-5.0); ALBUMIN/GLOBULIN RATIO 0.9 (0.8-2.0); ANION GAP 14.5 mmol/L (8-16); CALCIUM 8.5 mg/dL (8.4-10.2); CREATININE, SERUM 1.27 mg/dL (0.72-1.25); MAGNESIUM 2.5 MG/DL (1.3-2.1); POTASSIUM 4.5 mmol/L (3.5-5.1)
[2019-12-31 14:46] LABS: B-TYPE NATRIURETIC PEPTIDE2 66.3 pg/mL (0-100)
[2019-12-31 14:48] LABS: CREATINE KINASE MB 0.6 ng/mL (0-5.0)
[2019-12-31] MEDS ORDERED: SODIUM CHLORIDE 0.9% 1000ML 1,000 ML IV SCH (14:52)
[2019-12-31 15:08] LABS: SALICYLATE < 5.0 mg/dL (0-30)
[2019-12-31] MEDS ORDERED: ALBUTEROL SULF 0.083% NEB SOLN 3 ML NEB INH PRN (15:15)
--- NOTE | 2019-12-31 15:19 | Diagnostic Imaging Report ---
EXAMINATION: CHEST SINGLE (PORTABLE) INDICATION: Chest pain, shortness of breath COMPARISON: Chest radiograph 12/19/2019 FINDINGS: LINES/TUBES:EKG leads overlie the chest. LUNGS:The lungs are moderately inflated. There is left basilar opacity silhouetting the left ricardo diaphragm. PLEURA:No pleural effusion or pneumothorax. MEDIASTINUM:The cardiomediastinal silhouette appears unchanged in size and shape. BONES/SOFT TISSUES:No acute osseous injury. ABDOMEN:No free air under the diaphragm. IMPRESSION: Left basilar opacity, more likely subsegmental atelectasis than superimposed aspiration or pneumonia. Signed by: Jeannie Hansen MD on 12/31/2019 3:16 PM
[2019-12-31] MEDS: GABAPENTIN 300 MG CAP PO SCH ×2 (16:35→21:00)
--- NOTE | 2019-12-31 17:15 | Diagnostic Imaging Report ---
EXAM: CT Chest, Abdomen and Pelvis WITHOUT intravenous contrast INDICATION: Chest pain, abdominal pain COMPARISON: Chest radiograph of the same day TECHNIQUE: The chest, abdomen and pelvis were scanned utilizing a multidetector helical scanner from the thoracic inlet to the pubic symphysis without administration of IV contrast. Coronal and sagittal reformations were obtained. IV CONTRAST: None ORAL CONTRAST: Gastrografin COMPLICATIONS: None RADIATION DOSE: Total DLP: 1123 mGy*cm Dose modulation, iterative reconstruction, and/or weight based adjustment of the mA/kV was utilized to reduce the radiation dose to as low as reasonably achievable. FINDINGS: LINES/ TUBES: None. LUNGS AND AIRWAYS: The central airways are patent. 3.5 x 2.7 cm superior left lower lobe cavitary mass. Bibasilar dependent subsegmental atelectasis. No pulmonary edema. PLEURA: Small bilateral pleural effusions. No pneumothorax. HEART AND MEDIASTINUM: 1.7 cm hypodense left thyroid nodule. Supraclavicular lymphadenopathy measuring up to 1.3 cm short axis on the right (series 2 image 5). Numerous enlarged mediastinal lymph nodes including a 4.0 x 3.0 cm pretracheal node (image 24), prevascular nodes measuring up to 3.3 x 2.3 cm (image 25), and subcarinal nodes measuring up to 2.9 x 2.1 cm (image 36). Left suprahilar sher[employer] measures up to 4.4 cm (image 31). Pericardiac nodes measure up to 1.5 x 1.1 cm (image 47). The heart is not enlarged. Moderate pericardial effusion. Mild atherosclerotic calcification of the aorta and coronary arteries. HEPATOBILIARY: No focal liver lesion. No biliary ductal dilation. Unremarkable gallbladder. SPLEEN: No splenomegaly. Vaguely hypodense 1.9 cm area in the posterior spleen. PANCREAS: No focal masses or ductal dilatation. ADRENALS: 9 mm right adrenal nodule. No left adrenal nodule. KIDNEYS/URETERS: No hydronephrosis, stones, or solid mass lesions. PELVIC ORGANS/BLADDER: Unremarkable. PERITONEUM / RETROPERITONEUM: No free air or fluid. LYMPH NODES: Retroperitoneal lymphadenopathy including multiple enlarged paraaortic and aortocaval nodes measuring up to 2.2 x 1.4 cm. Bilateral iliac chain lymphadenopathy. VESSELS: Diffuse atherosclerotic calcifications of the nonaneurysmal abdominal aorta and major branches. GI TRACT: Diverticulosis without CT evidence of diverticulitis. No abnormal bowel thickening. No bowel obstruction. Normal appendix. BONES AND SOFT TISSUES: Expansile soft tissue density involving the right iliacus muscle and soft tissue masses posterior to the right psoas muscle measuring up to 5.7 cm and 6.6 cm. No acute osseous injury. No suspicious lytic or blastic lesions. IMPRESSION: Extensive multifocal lymphadenopathy in the chest abdomen and pelvis findings are concerning for metastatic disease versus primary lymphoproliferative process. Expansile soft tissue density involving the right iliacus and psoas muscles and adjacent right retroperitoneal low-density heterogeneous masses with associated adjacent soft tissue stranding. Findings may represent retroperitoneal hematoma in the proper cortical setting (anticoagulation) or alternatively malignancy. Left lower lobe 3.5 x 2.7 cm cavitary mass. Differential includes infectious and neoplastic etiologies. Small bilateral pleural effusions. Associated bibasilar subsegmental atelectasis. Signed by: Jeannie Hansen MD on 12/31/2019 5:13 PM
[2019-12-31] MEDS ORDERED: VANCOMYCIN 1GM/NS 250 ML 250 ML IV ONE (18:00)
[2019-12-31] MEDS ORDERED: PIPER-TAZ 3.375 GM / NS 50ML IV SCH (18:00)
[2019-12-31 18:11] LABS: BASOPHILS # (AUTO) 0.1 (0.0-0.1); BASOPHILS % 0.6 % (0.0-1.0); EOSINOPHILS # (AUTO) 0.6 (0.0-0.4); EOSINOPHILS % 2.8 % (0.0-6.0); HEMATOCRIT 33.3 % (38.2-49.6); HEMOGLOBIN 10.3 g/dL (14.0-18.0); LYMPHOCYTES % 8.7 % (18.0-39.1); MEAN CORPUSCULAR HEMOGLOBIN 30.1 pg (28-32); MEAN CORPUSCULAR HGB CONC 30.9 g/dL (31-35); MEAN CORPUSCULAR VOLUME 97.4 fL (81-99); MONOCYTES # (AUTO) 1.7 (0.2-0.8); MONOCYTES % 7.3 % (4.4-11.3); NEUTROPHILS # (AUTO) 17.9 (2.1-6.9); NEUTROPHILS % 79.5 % (38.7-80.0); PLATELET COUNT 236 x10e3/uL (140-360); RED BLOOD COUNT 3.42 x10e6/uL (4.3-5.7); RED CELL DISTRIBUTION WIDTH 13.7 % (11.7-14.4)
[2019-12-31] MEDS ORDERED: HYDROMORPHONE 20MG/ NS 100ML IV PRN (18:30)
[2019-12-31] MEDS ORDERED: DIGOXIN INJ 0.25 MG/ML 2 ML AMP IV ONE (18:30)
[2019-12-31] MEDS: SODIUM CHLORIDE 0.9% 1000ML 1,000 ML IV SCH (18:40)
[2019-12-31] MEDS ORDERED: HYDROMORPHONE 1MG/1ML INJ IV PRN (18:45)
[2019-12-31] MEDS ORDERED: BUDESONIDE/FORMOTEROL 160/4.5MCG INHALER INH SCH (19:00)
[2019-12-31] MEDS ORDERED: NOREPINEPHRINE 8 MG/D5W 250 ML 250 ML ONE (19:43)
[2019-12-31] MEDS ORDERED: HYDROMORPHONE 1MG/1ML INJ IV SCH (19:45)
[2019-12-31] MEDS ORDERED: NOREPINEPHRINE INJ 4MG/4ML 8 MG in DEXTROSE 5% 250ML 250 ML IV SCH (19:45)
[2019-12-31] MEDS ORDERED: DILTIAZEM HCL VIAL 5 ML ONE (20:11)
[2019-12-31] MEDS ORDERED: DILTIAZEM HCL IV 5MG/ML 25 ML VIAL ONE (20:12)
[2019-12-31] MEDS ORDERED: DILTIAZEM HCL 5 MG/ML 5 ML VIAL IV STA (20:13)
[2019-12-31] MEDS ORDERED: DILTIAZEM HCL 125 ML IV SCH (20:15)
--- NOTE | 2019-12-31 20:22 | Diagnostic Imaging Report ---
Examination: Single AP view of the chest. COMPARISON: CT chest 12/31/2019 INDICATION: Status post central line IMPRESSION: 1. Lines and Tubes: Status post placement of left-sided central line, with distal tip projecting in the location of the distal left innominate vein. 2. Please CT chest performed same date for description of lung findings. Signed by: Dr. Yusef Lopez M.D. on 12/31/2019 8:20 PM
[2019-12-31] MEDS: PIPER-TAZ 3.375 GM 50 ML IV SCH (20:25)
[2019-12-31] MEDS: HYDROMORPHONE 1MG/1ML INJ IV PRN ×3 (20:25→22:31)
--- NOTE | 2019-12-31 20:32 | Consultation ---
DATE OF CONSULTATION: Pulmonary Critical Care Consultation CHIEF COMPLAINT: Abdominal and right flank pain. HISTORY OF PRESENT ILLNESS: The patient is a 59-year-old man. He was recently hospitalized with a left lower lobe nodule as well as mediastinal adenopathy and retroperitoneal adenopathy. A CT-guided biopsy was performed. Pathology results show poorly differentiated carcinoma. The patient was scheduled to follow up with Dr. Gil for a PET scan and MRI of the brain. Two days ago, he developed some right-sided flank pain that radiated into his groin. He noted some orange-colored urine. He denies fever or chills. He is complaining of shortness of breath. PAST MEDICAL HISTORY: 1. Bronchogenic carcinoma with mediastinal adenopathy and adenopathy below the diaphragm consistent with stage IV disease. 2. COPD. 3. Hypertension. 4. History of kidney stones many years ago. PAST SURGICAL HISTORY: One CT-guided lung biopsy as noted above. FAMILY HISTORY: Family history is noncontributory. ALLERGIES: THERE ARE NO KNOWN DRUG ALLERGIES. REVIEW OF SYSTEMS: He denies fevers. He has no headache or neck pain. He is not complaining of any chest pain. He does note shortness of breath. He has no abdominal pain. He has no nausea or vomiting. He does have some right-sided flank pain that radiates into his groin. He also has some lower abdominal pain. He has no focal neurological complaints. PHYSICAL EXAMINATION: VITAL SIGNS: The patient's blood pressure is 97/56 with a pulse of 84 and respiratory rate of 20. HEENT: Shows no facial swelling or erythema. The oropharynx is normal. LYMPHATIC: Shows no submandibular, cervical, or supraclavicular adenopathy. CARDIAC: Reveals a regular rate and rhythm with normal S1, S2. LUNGS: Auscultation of lungs reveals a prolonged expiratory phase bilaterally. There is no wheezing. ABDOMEN: Soft. There is some right-sided flank pain and tenderness. EXTREMITIES: There is no leg edema or calf tenderness. There is no cyanosis or clubbing. SKIN: Normal. LABORATORY DATA: White blood cell count is 20 with a hemoglobin of 8.3 and a platelet count of 57. The BUN to creatinine ratio is 35 to 1.27 and the sodium is 131. The lactic acid is elevated at 2.8. The other liver tests are within normal limits. PT and INR within normal limits. RADIOGRAPHIC DATA: Chest x-ray shows a left basal opacity in the area were he had a CT-guided biopsy. CT scan of the abdomen and pelvis is pending. IMPRESSION: 1. Acute onset of right flank pain with leukocytosis. 2. Stage IV bronchogenic carcinoma. 3. Chronic obstructive pulmonary disease. 4. Thrombocytopenia. 5. Anemia, unspecified. PLAN: 1. The patient has received 2 L of IV fluids. 2. The patient has been pancultured and started on antibiotics. 3. Await results of CT scan of abdomen and pelvis. 4. Urinalysis and urine C and S. 5. Evaluation by Oncology. John Ramirez MD [facility]/MARYL /[id number]
[2019-12-31] MEDS: ALBUTEROL/IPRATROPIUM 3 ML NEB NEB PRN ×2 (20:47→23:23)
[2019-12-31] MEDS ORDERED: ZOLPIDEM TARTRATE 5 MG TAB PO PRN (21:00)
[2019-12-31] MEDS ORDERED: TEMAZEPAM 15 MG CAP PO SCH (21:00)
[2020-01-01] VITALS (13 sets, daily range): BP systolic 75–145; BP diastolic 56–130
[2020-01-01] MEDS: SODIUM CHLORIDE 0.9% 1000ML 1,000 ML IV SCH (00:30)
--- NOTE | 2020-01-01 00:45 | NUR ---
Received from ER to 189. Placed on EKG, pulse ox & NBP for monitoring. Admission history, initial admission assessment completed. See interventions. IV Levophed @ 18 mcg/min or 33.8ml/hr & Cardizem @ 10mg/hr.
[2020-01-01] MEDS ORDERED: SODIUM CHLORIDE 0.9% 1000ML 1,500 ML IV SCH (01:15)
--- NOTE | 2020-01-01 01:15 | NUR ---
Dr. High here. Spoke with pt. Going to examine CT scan.
[2020-01-01 01:17] LABS: CREATINE KINASE MB 1.2 ng/mL (0-5.0)
--- NOTE | 2020-01-01 02:10 | NUR ---
Dr. High returned. Spoke with the family re: transfer to [facility] vs doing pericardial window here. [employer] Coordinator notified to contact transfer center.
--- NOTE | 2020-01-01 02:14 | Operative Report ---
DATE OF PROCEDURE: SURGEON: John Ramirez MD PROCEDURE: Ultrasound-guided central line placement. PREOPERATIVE DIAGNOSIS: Retroperitoneal hematoma. POSTOPERATIVE DIAGNOSIS: Retroperitoneal hematoma. CONSENT: Consent was obtained from the patient. ANESTHESIA: The patient received Dilaudid 0.5 mg IV and 1% lidocaine for local anesthesia. DESCRIPTION OF PROCEDURE: The patient was placed in a supine position. The left neck was prepped sterilely with chlorhexidine. A full-length drape was used. Sterile gown, sterile gloves, and mask were also used. An ultrasound machine was used to locate the left internal jugular vein. Vein was then cannulated under direct visualization with a 16-gauge needle. The wire was placed through the needle and then a dilator was placed over the wire. The skin was dilated and a triple-lumen catheter was placed over the wire by the Seldinger technique. All the ports flushed. COMPLICATIONS: None. ESTIMATED BLOOD LOSS: 10 mL. John Ramirez MD [facility]/MODL /[id number]
[2020-01-01] MEDS ORDERED: SODIUM CHLORIDE 0.9% 500ML 500 ML ONE (02:15)
--- NOTE | 2020-01-01 02:30 | NUR ---
P set up and called Dr. High to notify of reading .
--- NOTE | 2020-01-01 03:19 | Consultation ---
DATE OF CONSULTATION: 01/01/2020 REASON FOR CONSULT: Pericardial effusion; requested by Dr. John Ramirez. HISTORY: This is a 59-year-old man, who has recently diagnosed malignancy that is felt to be a primary lung cancer with mediastinal adenopathy. He has been having chest discomfort and dyspnea over the last several months. Of note, he had a CT scan of the chest performed on 12/17/2019 in the emergency room at [facility] that was negative for pulmonary embolus, but did show mediastinal adenopathy, left lower lobe mass, and possibly some compression of the right lower lobe bronchus. There was no pericardial effusion identified. He is in the process of being evaluated for the left lower lobe malignancy. The exact type of tumor is not clear and the patient's family does not have the report. He presented with dyspnea. CT scan and echocardiogram have suggested a large pericardial effusion. He also has a tachycardia. CVP was placed in the emergency room. It was reported to be elevated, but no numbers are available at the present time. This is in the process of being assessed in the ICU. The patient was a smoker, but has quit. He uses alcohol. No history of myocardial infarction or coronary artery disease. No stroke or TIA. The patient has a history of coronary artery disease. PAST MEDICAL HISTORY: Positive for hypertension, asthma, obesity, CAD, and cellulitis. PAST SURGICAL HISTORY: Positive for knee replacement. ALLERGIES: NONE KNOWN. SOCIAL HISTORY: . Daughter is at the bedside. Positive for smoking in the past. Positive for alcohol use. MEDICATIONS: See MAR. FAMILY HISTORY: Negative for any history of malignancy or early coronary artery disease. REVIEW OF SYSTEMS: GENERAL: Positive for fatigue and malaise. NEUROLOGIC: Negative for focal weakness in extremities or dysarthria. HEENT: Negative for decreased vision or decreased hearing. CARDIAC: Positive for CAD as above. Negative for active chest pain or angina. PULMONARY: Positive for shortness of breath as above. GI: No change in bowel habits. : Negative for hematuria or dysuria. ENDOCRINE: Negative for polyuria or polydipsia. VASCULAR: Negative for claudication. SKIN: Negative for rashes or itching. Hematologic: Negative for clotting or bleeding. INFECTIOUS: Negative for fevers or sweating. IMAGING: Old imaging studies are reviewed. On 12/17/2019, CT scan of the abdomen shows adenopathy as well as a right iliopsoas abnormality that was felt to be a hematoma. PHYSICAL EXAMINATION: GENERAL: A large man, sitting up in bed in the ICU, breathing comfortably. VITAL SIGNS: Blood pressure 104/70. He is on IV Levophed at 10. Heart rate is 110. HEENT: Extraocular motion full. Pupils equal. LUNGS: No wheezing. Full clear breath sounds. CARDIAC: Irregular rhythm at approximately 01:20 and irregularly irregular rhythm intermittently, blood pressure 110/70. NECK: No JVD. Supple. ABDOMEN: Globoid, benign. Good bowel sounds. No hepatosplenomegaly. BACK: No CVA tenderness. No muscular spasm. EXTREMITIES: No cyanosis, clubbing, or edema. VASCULAR: Carotids are 2+/2+ bilaterally. No carotid bruits. Radials and femorals 2+/2+ bilaterally. SKIN: No rashes or nonhealing ulcers. MUSCULOSKELETAL: Full range of motion at all joints. No joint swelling. NEUROLOGIC: Cranial nerves 2 through 12 intact. Sensation intact to light touch and pinprick bilaterally. Strength 5/5 in all extremities. LYMPHATIC: Negative for cervical, clavicular, femoral adenopathy. LABORATORY DATA: White count 20.9, hemoglobin 10.2, hematocrit 32.3. This was performed on 12/20/2019. Other laboratories from today are pending. Imaging studies have been reviewed. OTHER STUDIES: Echocardiogram, results are reviewed with Dr. De La Fuente. There is approximately 200 to 300 mL effusion in his opinion. IMPRESSION: Pericardial effusion. Drainage will be planned. I described the operation to the patient and his daughter. I told them both that the risks of surgery would include , bleeding, infection, heart attack, stroke, pneumonia, prolonged ICU stay, mechanical ventilation, tracheostomy, amputation, etc. They each stated that they understood, no further question and wanted to proceed. Thank you much for asking me to see this nice man. MD JOEL Love/KUN /[id number]
[2020-01-01] MEDS: PIPER-TAZ 3.375 GM 50 ML IV SCH (03:31)
[2020-01-01] MEDS ORDERED: NOREPINEPHRINE 8 MG/D5W 250 ML 250 ML ONE (03:56)
[2020-01-01] MEDS: HYDROMORPHONE 1MG/1ML INJ IV PRN ×3 (04:12→06:22)
[2020-01-01 05:25] LABS: BASOPHILS # (AUTO) 0.2 (0.0-0.1); BASOPHILS % 0.5 % (0.0-1.0); HEMATOCRIT 28.4 % (38.2-49.6); HEMOGLOBIN 8.9 g/dL (14.0-18.0); LYMPHOCYTES # (AUTO) 1.6 (1.0-3.2); LYMPHOCYTES % 4.9 % (18.0-39.1); MEAN CORPUSCULAR HEMOGLOBIN 29.9 pg (28-32); MEAN CORPUSCULAR HGB CONC 31.3 g/dL (31-35); MEAN CORPUSCULAR VOLUME 95.3 fL (81-99); MONOCYTES # (AUTO) 2.7 (0.2-0.8); MONOCYTES % 8.2 % (4.4-11.3); NEUTROPHILS # (AUTO) 26.1 (2.1-6.9); NEUTROPHILS % 81.3 % (38.7-80.0); PLATELET COUNT 502 x10e3/uL (140-360); RED BLOOD COUNT 2.98 x10e6/uL (4.3-5.7); RED CELL DISTRIBUTION WIDTH 13.7 % (11.7-14.4)
[2020-01-01 05:48] LABS: CREATINE KINASE MB 1.2 ng/mL (0-5.0)
--- NOTE | 2020-01-01 05:51 | Diagnostic Imaging Report ---
Examination: Single AP view of the chest. COMPARISON: Chest radiograph 12/31/2019, CT chest abdomen and pelvis 12/31/2019 INDICATION: Cardiac tamponade DISCUSSION: See impression IMPRESSION: 1. Stable position of left internal jugular central venous catheter, with the tip projecting over the expected brachiocephalic venous confluence. 2. Cavitary lesion in the medial left lower lobe is poorly visualized by plain radiography. Bilateral pleural effusions and passive atelectasis of the lower lobes similar to prior. No new consolidations. Signed by: Dr. Akin Fofana M.D. on 01/01/2020 5:48 AM
[2020-01-01 06:05] LABS: ALBUMIN 2.6 g/dL (3.5-5.0); ALBUMIN/GLOBULIN RATIO 0.8 (0.8-2.0); ANION GAP 13.2 mmol/L (8-16); CREATININE, SERUM 1.22 mg/dL (0.72-1.25); POTASSIUM 5.2 mmol/L (3.5-5.1)
--- NOTE | 2020-01-01 06:10 | NUR ---
IM- progress note O/N see below ROS: no f/c/s/N/v/D/SCOTT/vision changes/back pain/skin rash/focal limb weakness. v/s revd PE: tired appeairng anicteric ns1s2 mod bs soft nt nd skin dry flat affect a&ox3; whalen labs/med; revd A/P: 58yoM Left lung cavitary lesion- pulm consult; Mediastinum/Hilar LAD- onc consult Retroperitoneum LAD Hyponatrema- hydrate Hx Cig use Chr Systolic CHF Obesity- hbab1c/lipids BMI 39 DVT prop: pepcid; lovenox 01/01 Multifocal LAD; RIght iliacus and psoas muscle soft tissue density- hematoma vs mets; Again 3.5x2.7cm cavitary Lung mass= cancer; Pericardial effusion- CV sx mgmt pending; Patient has cardiac tamponade- spent >90mins coordinating care at current facility, then discussing case with transfer center and physicians in [facility] center for transfer. Pt will be transferred to the medical center this am by helicopter. critical care time spent >90 minutes Billy Pean MD, PhD.
[2020-01-01 08:03] LABS: LYMPHOCYTES % (MANUAL) 10 % (19-48); MONOCYTES % (MANUAL) 3 % (3.4-9.0); NEUTROPHILS % (MANUAL) 87 % (40-74)
--- NOTE | 2020-01-01 08:20 | NUR ---
Pt is leaving with life flight to [facility] in [facility]. Report called to Porsha SHAFER. Flight crew discussed transport with Dr Sharifa Ramirez. and daughter following pt out and given hospital address, room assignment.
[2020-01-01] MEDS ORDERED: LORATADINE/PSEUDOEPHEDRINE 24 HR SR TAB PO SCH (09:00)
--- NOTE | 2020-01-01 10:56 | Progress Note ---
DATE: Pulmonary Critical Care Progress Note SUBJECTIVE: Echocardiogram last night showed some pericardial effusion with early right ventricular collapse suggestive of tamponade. The patient was evaluated by Cardiothoracic Surgery. Cardiothoracic surgeon felt that a pericardial window would be appropriate and recommended transfer to [facility] if possible. CT scan of the abdomen and pelvis showed extensive multifocal lymphadenopathy in the chest, abdomen, and pelvis as well as an expansile soft tissue density in the right iliacus and psoas muscles, possibly representing hemorrhage versus malignancy. The patient remains on Levophed at 15 mcg and was on Cardizem. The Cardizem was recently stopped. PHYSICAL EXAMINATION: VITAL SIGNS: The blood pressure is now 96/70, on Levophed with 3 L of oxygen. The T-max is 99.2. HEENT: Shows no facial swelling or erythema. There is a left IJ line in place. The site looks clean. There is no drainage. CARDIAC: Reveals distant heart sounds with a tachycardia. LUNGS: Auscultation of the lungs shows decreased breath sounds at the bases. ABDOMEN: Soft. There is some tenderness in the right flank. There is no leg edema. NEUROLOGICAL: Shows no focal abnormalities. LABORATORY DATA: White blood cell count is increased to 32 and hemoglobin is 8.9. The platelet count is 502. The BUN to creatinine ratio is normal at 32 to 1.22 and the potassium is 5.2. The sodium is 129. The albumin is 2.6. IMPRESSION: 1. Pericardial effusion with acute tamponade. 2. Metastatic cancer. Most recent biopsy two weeks ago suggested a poorly differentiated bronchogenic carcinoma. 3. Hematoma versus malignant infiltration of the right iliacus and psoas muscles. 4. Anemia, unspecified. 5. Hyponatremia. PLAN: 1. The patient will be taken by [facility] to [facility]. 2. Continue to give volume to help and ensure maximal right-sided filling pressures. 3. Continue Levophed and hold Cardizem. 4. Continue antibiotics. 5. Oncology evaluation after acute pathology has been addressed. 6. Case discussed with Dr. De La Fuente of Cardiology, Dr. High of Cardiovascular Surgery, Dr. Sesay and Dr. Castano of the emergency department, the patient, family, and nursing staff. Case also discussed with flight nurse prior to transfer. Greater than 35 minutes in direct critical care time. MD ADONAY Schwarz/KUN /[id number]
--- NOTE | 2020-01-01 19:08 | NUR ---
D/C summary Principal Dx: Left lung cavitary lesion- pulm consult; Mediastinum/Hilar LAD- onc consult Retroperitoneum LAD Hyponatrema- hydrate Secondary dx: Hx Cig use Chr Systolic CHF Obesity- hbab1c/lipids BMI 39 DVT prop: pepcid; lovenox 01/01 Multifocal LAD; RIght iliacus and psoas muscle soft tissue density- hematoma vs mets; Again 3.5x2.7cm cavitary Lung mass= cancer; Pericardial effusion- CV sx mgmt pending; Patient has cardiac tamponade- spent >90mins coordinating care at current facility, then discussing case with transfer center and physicians in [facility] for transfer. Pt will be transferred to the [facility] this am by helicopter. critical care time spent >90 minutes d/c to medical center d/c>35mins stable f/u medical team in [facility], including . Billy Pena MD, PhD.
== END 2020-01-01 08:30 | disposition short-term general hospital (02) | DRG 394 ==
LOC: ER 11:42 → ERHOLD 16:20 → ICU 01-01 00:40
PROVIDERS: ADMIT Internal Medicine; ATTEND Internal Medicine
PROC: 02HV33Z Insertion of Infusion Device into Superior Vena Cava, Percutaneous Approach (ICD-10-PCS; principal; 2019-12-31)
DX: K66.1 Hemoperitoneum (principal); C34.32 Malignant neoplasm of lower lobe, left bronchus or lung; I31.3 Pericardial effusion (noninflammatory); I50.22 Chronic systolic (congestive) heart failure; C34.92 Malignant neoplasm of unspecified part of left bronchus or lung; C78.1 Secondary malignant neoplasm of mediastinum; C78.6 Secondary malignant neoplasm of retroperitoneum and peritoneum; E87.1 Hypo-osmolality and hyponatremia; I31.4 Cardiac tamponade; R52 Pain, unspecified; J44.9 Chronic obstructive pulmonary disease, unspecified; Z87.891 Personal history of nicotine dependence; D69.6 Thrombocytopenia, unspecified; I11.0 Hypertensive heart disease with heart failure; E66.9 Obesity, unspecified; Z68.39 Body mass index [BMI] 39.0-39.9, adult; R59.9 Enlarged lymph nodes, unspecified
CPT/HCPCS: 36415; 71045; 71250; 74176; 80053; 80307; 80329; 81001; 82550; 82553; 83605; 83690; 83735; 83880; 84484; 85025; 85610; 85730; 86850; 86900; 86920; 87040; 87086; 93005; 93306; 94640; 94664; 99284; J1160; J1170; J2543; J3370; J7030; J7040